=== PATIENT | male | born 1945 | race Caucasian/White ===

== ENCOUNTER 2018-06-29 05:25 | Day surgery (SDC) | payer OTHER, MEDICARE ==
--- NOTE | 2018-06-25 12:39 | RAD ---
EXAM DESCRIPTION: Chest,2 Views CLINICAL HISTORY: pre op COMPARISON: Previous study April 16, 2013 TECHNIQUE: PA/lateral FINDINGS: There is no acute appearing cardiac or pulmonary abnormality. Heart size is normal with normal pulmonary vascularity. No pleural effusion or pneumothorax. Lungs are clear with no consolidating infiltrate. Lateral view shows intact sternum and old wedging in the lower T-spine. IMPRESSION: No acute process is identified in the chest. Electronically signed by: Heriberto Yap MD 06/25/2018 12:38 PM [facility]
[2018-06-29] MEDS ORDERED: SODIUM CHL 0.9% 100ML MINI-BAG 100 ML IVPB ONE (06:49)
[2018-06-29] MEDS ORDERED: ceFAZolin SODIUM 1 GM VIAL ONE (06:49)
[2018-06-29] MEDS ORDERED: PROPOFOL 200 MG/20 ML VIAL IV ONE (07:00)
[2018-06-29] MEDS ORDERED: MIDAZOLAM INJ 2 MG/2 ML VIAL ONE (07:10)
[2018-06-29] MEDS ORDERED: fentaNYL CITRATE INJ 50 MCG/ML AMP ONE (07:10)
[2018-06-29] MEDS: LACTATED RINGERS 1,000 ML ONE ×2 (10:05→12:24)
[2018-06-29] MEDS ORDERED: SODIUM PHOS/BIPHOS ENEMA ADULT 133 ML BTTL PR ONE ×2 (10:21→10:30)
[2018-06-29] MEDS ORDERED: BUPIVACAINE 0.25% W/EPI 50 ML VIAL INJ ONE (11:26)
--- NOTE | 2018-06-29 13:37 | OP ---
DATE OF PROCEDURE: 06/29/18 PREOPERATIVE DIAGNOSIS: 1. Blood per rectum. 2. Hemorrhoids. POSTOPERATIVE DIAGNOSIS: 1. Blood per rectum. 2. Hemorrhoids. PROCEDURE: 1. Proctoscopy. 2. Excision of hemorrhoidal column times 2. SURGEON: Dwight Vickers MD. FELTMAKER AND WEIGHER: None. ANESTHESIA: Local infiltration of 0.25% Marcaine with epinephrine and general laryngeal mask anesthesia. INDICATION: The patient is a 73-year-old male who complains of bleeding and a prolapsed hemorrhoid with bowel movements. It has worsened recently. He was brought to the Surgical Suite today for proctoscopy and excision of hemorrhoids. FINDINGS: There were columns at 10 o'clock and 2 o'clock. Proctoscopy to 15 cm revealed no other lesions. PROCEDURE: After adequate general endotracheal anesthesia was obtained and the patient was placed in the dorsolithotomy position, he was prepped and draped in the usual sterile manner. Surgical time-out was taken. At this point, lubricant was used and the proctoscope was introduced to 15 cm and removed without revealing lesions. The examination of the perineum area, however, revealed two columns of hemorrhoids that collapsed, one at 10 o'clock and one at 4 o'clock, which was larger. At this point, the rectum was dilated to 2 fingers gently, then an operative anoscope was introduced, oriented to isolate the 4 o'clock lesion. At this time, an [facility] clamp was clamped across the length of the hemorrhoid. Local infiltration of anesthesia was obtained and then the hemorrhoid was excised using scissors. A 3-0 Prolene suture was then placed passed the clamp and tied. The mucosa was then reapproximated after the clamp was removed. There was bleeding from the distal area and this was covered with a [id number] suture of 3-0 Chromic. When hemostasis appeared to be adequate, the anoscope was moved following the 10 o'clock lesion. It was then clamp, injected and excised in the same manner. The mucosa was reapproximated again with the 3-0 Chromic sutures. When this was done, there was a small amount of oozing, so a 4x4 was moistened with local anesthetic, inserted into the rectum and held for 5 minutes. At that point, hemostasis seemed to be adequate. Sterile dressing was applied and the patient was awakened and taken to the Recovery Room in stable condition. Estimated blood loss was 150 mL. All sponge, needle and instrument counts were correct. #[id number] [facility]
[2018-06-29 13:44] VITALS: TEMP 96.7; O2SAT 98
[2018-06-29 13:49] VITALS: BP 158/80
== END 2018-06-29 13:45 | disposition home or self-care (01) ==
LOC: AMB 05:25
PROVIDERS: ATTEND Surgery
DX: K92.1 Melena (principal); K64.8 Other hemorrhoids; I10 Essential (primary) hypertension; Z96.652 Presence of left artificial knee joint; Z79.82 Long term (current) use of aspirin; Z79.899 Other long term (current) drug therapy
CPT/HCPCS: 00902; 36415; 45300; 46250; 71046; 80053; 81001; 85025; 93005; J0690; J2250; J3010; J3490; J7050; J7120

== ENCOUNTER → 2019-01-16 | Outpatient (CLI) | payer OTHER, MEDICARE ==
--- NOTE | 2019-01-16 13:39 | MRI ---
Study: MRI of the Left Foot. Indication: LEFT FOOT PAIN Technique: Multiplanar, multi sequence MRI of the left foot was obtained without intravenous contrast. Comparison: None. Findings: No acute fracture. Lisfranc ligament intact. Scattered mild osteoarthritis throughout the midfoot. Moderate osteoarthritis first MTP joint. Cellulitis throughout the forefoot and most pronounced at the second and third digits. A tiny subcutaneous fluid collection noted along the lateral margin of the base of the second digit anteriorly and measures up to 6.5 mm craniocaudal by 4 mm transverse by 11 mm AP concerning for a tiny abscess. No features of osteomyelitis. Impression: Cellulitis of the forefoot and most pronounced at the second and third digits with a tiny subcutaneous abscess suspected of the lateral margin of the base of the second digit. No features of osteomyelitis identified. Electronically signed by: Albert Tyler MD 01/16/2019 1:37 PM CDT
== END ==
LOC: MRI 09:30
PROVIDERS: ATTEND Family Medicine
DX: L03.116 Cellulitis of left lower limb (principal)

== ENCOUNTER 2020-08-16 11:50 | Inpatient (IN) | payer OTHER, MEDICARE ==
[2020-08-16] MEDS ORDERED: SODIUM CHLORIDE 0.9% (FLUSH) 10 ML SYG IV PRN ×2 (12:09→15:04)
[2020-08-16] MEDS ORDERED: DEXAMETHASONE INJ 10 MG/ML VIAL IV ONE (12:12)
--- NOTE | 2020-08-16 12:18 | ED.PDOC ---
History of Present Illness - General Chief Complaint: Respiratory Problem Stated Complaint: shortness of breath,cough, COVID+ Time Seen by Provider: 08/16/20 12:06 Source: patient, RN notes reviewed, Vital Signs reviewed, family Exam Limitations: no limitations - History of Present Illness Initial Comments: 75 yo male with PMH HTN and COVID+ presents with worsening SOB. States he began having cough and congestion on 08/06 and tested positive for COVID on 08/09 and treated with a Z pack. States he has had body aches, fatigue, decreased appetite and occasional fever. His breathing has been more difficult the past 2 days so came to ED for evaluation. Denies CP or CANTRELL. Reports cough productive of white mucous. Allergies/Adverse Reactions: Allergies NO KNOWN ALLERGY Allergy (Verified 06/30/15 09:21) Home Medications: Ambulatory Orders Amlodipine Besylate 08/16/20 Review of Systems - Review of Systems Constitutional: States: fever, weakness - generalized. Denies: chills EENTM: States: nose congestion. Denies: blurred vision, throat pain Respiratory: States: cough, short of breath Cardiology: Denies: chest pain, palpitations, syncope Gastrointestinal/Abdominal: Denies: abdominal pain, nausea, vomiting Genitourinary: Denies: dysuria, frequency Musculoskeletal: States: muscle pain Skin: Denies: rash Neurological: Denies: headache, numbness All other Systems: Reviewed and Negative Past Medical History (General) - Patient Medical History Hx Stroke: No Hx Cardiac Disorders: No Hx Congestive Heart Failure: No Hx Hypertension: Yes Hx Diabetes: No Hx MRSA: No - Vaccination History Hx Influenza Vaccination: No Hx Pneumococcal Vaccination: No - Social History Hx Tobacco Use: No Hx Alcohol Use: - drinks, mostly weekends Family Medical History - Family History Mother Family History: Unknown Physical Exam - Physical Exam General Appearance: Alert, Comfortable, No apparent distress Ears, Nose, Throat: normal pharynx Neck: non-tender, full range of motion, supple Respiratory: chest non-tender, normal breath sounds, no respiratory distress, no accessory muscle use Cardiovascular/Chest: regular rate, rhythm, no edema, no murmur Gastrointestinal/Abdominal: non tender, soft, no pulsatile mass Back Exam: no CVA tenderness, no vertebral tenderness Extremity: normal range of motion, non-tender, normal inspection Neurologic: no motor/sensory deficits, alert, normal mood/affect, oriented x 3 Skin Exam: normal color, warm/dry Progress - Progress Progress: 08/16/20 12:48 Lactic 2.8. Will give small bolus IVF and repeat lactic. Pt afebrile. Resting comfortably in no distress on 4L NC supplemental oxygen. 08/16/20 13:23 Pt has known COVID infection with worsening SOB past few days. He is hypoxic on RA and sats 93-94% on 4L NC. I have d/w hospitalist, Rigoberto Hardy, and will admit for covid pneumonia. - Results/Orders Results/Orders: EKG- NSR, rate 61, nml intervals, no ST abnormality CHEST Xray Impression: 1. Basilar atelectasis and shallow inspiration. 08/16/20 12:09 Telemetry .ONCE Sodium Chloride 0.9% (Flush) [Saline Flush Syringe] 10 ml IV PRN PRN EKG Stat Pulse Ox Stat 08/16/20 12:30 B-TYPE NATRIURETIC PEPTIDE/BNP Stat C-REACTIVE PROTEIN Stat LD-L/LDH Stat 08/16/20 12:35 BLOOD CULTURE Stat 08/16/20 12:48 Sodium Chloride 0.9% 1000ML [Ns 1000 ml] 1,000 ml IVS ONCE 08/16/20 13:21 Azithromycin IV [Zithromax IV] 500 mg Sodium Chloride 0.9% 250Ml [NS 250ml] 250 ml IVPB ONCE Remdesivir 200 mg Sodium Chloride 0.9% 250Ml [NS 250ml] 250 ml IVPB ONCE cefTRIAXone SODIUM [Rocephin] 1 gm Sodium Chl 0.9% 50Ml Min-Bag+ [NS 50ml MINI-BAG+] 50 ml IVPB ONCE 08/16/20 14:15 LACTIC ACID Q2H Laboratory Results - last 24 hr 08/16/20 08/16/20 08/16/20 12:30 12:30 12:31 WBC RBC Hgb Hct MCV MCH MCHC RDW Plt Count MPV Absolute Neuts (auto) Absolute Lymphs (auto) Absolute Monos (auto) Absolute Eos (auto) Absolute Basos (auto) Neutrophils % Lymphocytes % Monocytes % Eosinophils % Basophils % PT INR PTT (SP) Fibrinogen 546 H D-Dimer, Quantitative Sodium 138 Potassium 4.1 Chloride 101 Carbon Dioxide 26 Anion Gap 15.1 BUN 22 H Creatinine 0.84 BUN/Creatinine Ratio 26.2 H Random Glucose 95 Serum Osmolality 278.8 Lactic Acid Calcium 9.2 Total Bilirubin 1.8 H AST 63 H ALT 56 Alkaline Phosphatase 86 Creatine Kinase 37 L CK-MB (CK-2) 0.9 CK-MB (CK-2) % Not Reportable Troponin I < 0.02 B-Natriuretic Peptide < 15.0 Serum Total Protein 7.3 Albumin 3.4 Globulin 3.9 H Albumin/Globulin Ratio 0.9 L 08/16/20 08/16/20 08/16/20 12:31 12:31 12:31 WBC 7.3 RBC 5.95 Hgb 18.1 H Hct 54.0 H MCV 90.7 MCH 30.5 MCHC 33.6 RDW 15.0 H Plt Count 166 MPV 9.1 Absolute Neuts (auto) 5.40 Absolute Lymphs (auto) 0.90 L Absolute Monos (auto) 1.00 H Absolute Eos (auto) 0.00 Absolute Basos (auto) 0.00 Neutrophils % 74.0 Lymphocytes % 11.6 L Monocytes % 14.2 H Eosinophils % 0.1 L Basophils % 0.1 PT 12.2 H INR 1.23 H PTT (SP) 28.5 Fibrinogen D-Dimer, Quantitative 203.0 Sodium Potassium Chloride Carbon Dioxide Anion Gap BUN Creatinine BUN/Creatinine Ratio Random Glucose Serum Osmolality Lactic Acid 2.8 H* Calcium Total Bilirubin AST ALT Alkaline Phosphatase Creatine Kinase CK-MB (CK-2) CK-MB (CK-2) % Troponin I B-Natriuretic Peptide Serum Total Protein Albumin Globulin Albumin/Globulin Ratio Departure - Departure Clinical Impression: Pneumonia due to COVID-19 virus, Hypoxia, Essential hypertension Time of Disposition: 13:22 Disposition: Admit Patient Condition: Fair Departure Forms: ED Discharge - Pt. Copy, Patient Portal Self Enrollment Referrals: CHRIST ZHOU [Primary Care Provider] - 1-2 Weeks Home Medications: Ambulatory Orders Amlodipine Besylate 08/16/20 Decision To Admit - Decistion To Admit Decision to Admit Date: 08/16/20 Decision to Admit Time: 13:22
[2020-08-16] MEDS ORDERED: SODIUM CHLORIDE 0.9% 1000ML 1,000 ML IVS ONE (12:48)
--- NOTE | 2020-08-16 12:52 | RAD ---
: 1945. Technique: Portable AP chest x-ray. Comparison: June 25, 2018. Clinical history: SOB. Heart size: Normal. Lungs: Shallow inspiration. Linear densities at the lung bases consistent with scarring or subsegmental atelectasis. No airspace consolidation. Pleura: No pleural effusion. No pneumothorax. Mediastinum and jose: Unremarkable. Skeletal: Unremarkable. Support tubings: None. Impression: 1. Basilar atelectasis and shallow inspiration. Electronically signed by: Poncho Damon MD 08/16/2020 12:51 PM [facility]
[2020-08-16] MEDS ORDERED: REMDESIVIR 200 MG in SODIUM CHLORIDE 0.9% 250ML 250 ML IVPB ONE (13:21)
[2020-08-16] MEDS ORDERED: AZITHROMYCIN IV 500 MG in SODIUM CHLORIDE 0.9% 250ML 250 ML IVPB ONE (13:21)
[2020-08-16] MEDS ORDERED: cefTRIAXone SODIUM 1 GM in SODIUM CHL 0.9% 50ML MIN-BAG+ 50 ML IVPB ONE (13:21)
--- NOTE | 2020-08-16 13:41 | HP ---
SUPERVISING PHYSICIAN: Jeffrey Rosado MD CHIEF COMPLAINT: Cough, shortness of breath, Covid positive. HISTORY OF PRESENT ILLNESS: Mr. Toney is a 75 year-old male patient who presented to the Emergency Room today with a history of hypertension and recently being tested positive for Covid. He presents with increasing shortness of breath. He endorses that his symptoms initially started with a cough and congestion on 08/06/20. He actually tested positive on 08/09/20 and was started on a Z-Pac at that time. He also endorses that he has had body aches, fatigue, decreased appetite and occasional fever and increasing difficulty with breathing over the last 2 days. He denied actual chest pain. His chest x-ray shows bilateral atelectasis. His actual labs showed he had a white count of 7,300 without a left shift but low lymphocytic count. His D-dimer was normal but he had a lactic acid of 2.8. Creatinine was 0.84. C-reactive protein is a little low at 6.1. Vital signs in the Emergency Room showing saturation 88% on room air. He does not normally wear oxygen. Respirations of 24, some mild distress. After breathing treatment and placing him on oxygen at nasal cannula, he was showing 94% saturations. Given his recent testing positive for Covid and increasing shortness of breath and dyspnea, hypoxia, he is going to be admitted now for treatment of Covid pneumonitis. He was admitted in stable condition. PAST MEDICAL HISTORY: 1. Hypertension. PAST SURGICAL HISTORY: 1. Left inguinal hernia. 2. Eye surgery. 3. Left total knee replacement. CURRENT MEDICATIONS: Awaiting updated list and verification of his medications in the electronic medical record. ALLERGIES: No known drug allergies. FAMILY HISTORY: Positive for CVA, dementia. SOCIAL HISTORY: The patient currently works at [employer] in [place], [place]. He drinks an occasional beer but has no history of smoking. He is and lives by himself. REVIEW OF SYSTEMS: CONSTITUTIONAL: Positive for general malaise, weakness, fevers. Denies any actual chills or unintentional weight loss. HEENT: Positive for nasal congestion, denies ear ache, headaches. vision changes, sore throat. CHEST: Positive for cough and increasing shortness of breath. HEART: Denies chest pain, palpitations, or syncopal episodes. ABDOMEN: Negative for nausea, vomiting, diarrhea or constipation or abdominal pains. GENITOURINARY: Denies dysuria, hematuria or polyuria. MUSCULOSKELETAL: General arthralgias, no joint swelling. SKIN: Denies lesions, rashes, moles or unexplained changes. NEUROLOGIC: Denies ataxia, seizures, paraesthesias, headaches or other focal neurological deficits. HEMATOLOGICAL: Denies unexplained bleeding, easy bruising or transfusion reactions. PHYSICAL EXAMINATION: VITAL SIGNS: Temperature 98.3, pulse 74, blood pressure 150/84, respirations 24 to 26, oxygen saturation 88% on room air. After breathing treatment and placing on oxygen 4 liter nasal cannula, he was showing 94% saturations. GENERAL: The patient looks to be in no acute distress. He is resting comfortably. He is alert. HEENT: Tympanic membranes are clear bilaterally. Oropharynx is pink, moist, no lesions. NECK: Supple, non-tender, full range of motion. No jugular venous distention. CHEST: Fairly clear, just diminished toward the bases, no obvious rhonchi, rales, or wheezes. CARDIOVASCULAR: Regular rate and rhythm without appreciable murmurs, rubs, or gallops. ABDOMEN: Soft, non-tender, positive bowel sounds BACK: No CVA tenderness, no vertebral tenderness. EXTREMITIES: Without cyanosis, clubbing, or edema. NEUROLOGIC: He is alert and oriented x 3. Cranial nerves II through XII are grossly intact. SKIN: Warm, pink and dry. RECTAL: Exam deferred. LABORATORY: White count 7,300, hemoglobin 18.1, hematocrit 54.0. Platelet count 166,000. Differential does show to be without a left shift but a low lymphocytic count. Coagulation studies showed normal PTT. D-dimer normal at 203. Fibrinogen slightly elevated at 546. Chemistries show normal electrolytes, creatinine 0.4. Initial lactic acid 2.8. After a liter of fluid and repeat 2 hours, was 1.8. Bilirubin slightly elevated at 1.8. AST up to 63, ALT normal, alkaline phosphatase normal. LDH elevated at 292. C-reactive protein 6.1. Troponin less than 0.02. MICROBIOLOGY: Blood cultures are pending. RADIOLOGY: 12-lead EKG shows a normal sinus rhythm at 61 [id number] [address] or T- wave changes to indicate acute ischemia. Chest x-ray showed bibasilar atelectasis and shallow inspiration. ASSESSMENT: 1. Covid pneumonitis with associated hypoxia. 2. Sepsis secondary to #1 with initial elevated lactic acid. 3. Hypertension. PLAN: Mr. Toney is going to be admitted for treatment of Covid pneumonitis. He will be treated with Rocephin, azithromycin, Remdesivir, Decadron. He will be started on Protonix, Align and Mucinex and Lovenox for DVT prophylaxis. He will have oxygen and keep his oxygen saturation at 94% or greater. We will work to titrate him down to room air as soon as possible. He will have scheduled incentive spirometry with aggressive pulmonary hygiene, albuterol for breathing treatments scheduled and as needed. I would anticipate his length of stay to be at least 2 to 3 days. We will follow his labs and x-rays as per protocol. Until we can transition patient to outpatient management, we will continue to monitor and treat as needed #[id number] [facility]
[2020-08-16] MEDS ORDERED: ALBUTEROL INHALER 64 PUFF/8GM INH PRN (15:01)
[2020-08-16] MEDS ORDERED: ONDANSETRON INJ 4 MG/2 ML VIAL IV PRN (15:04)
[2020-08-16] MEDS: IV SET AND CAP CHANGE INJ INJ SCH (16:14)
[2020-08-16] MEDS: ALBUTEROL INHALER 64 PUFF/8GM INH SCH ×2 (17:30→20:46)
[2020-08-16] MEDS: guaiFENesin ER TAB 600 MG TAB PO SCH (20:35)
[2020-08-16] MEDS: ENOXAPARIN SODIUM 40 MG/0.4 ML SYG SUBCU SCH (20:35)
--- NOTE | 2020-08-17 06:25 | RAD ---
PROCEDURE:XR CHEST 1 VIEW HISTORY:COVID COMPARISON: August 16, 2020 FINDINGS: The heart appears unremarkable. The patient again has taken a poor inspiratory effort. There is some crowding the pulmonary vascularity. There is no effusion or pneumothorax. There are atelectatic changes seen at the left lung base. There are no acute bony or soft tissue abnormalities. IMPRESSION: Stable chest x-ray. Electronically signed by: Chicho Claire MD 08/17/2020 6:23 AM [employer]
[2020-08-17] MEDS ORDERED: PANTOPRAZOLE SODIUM IV 40 MG VIAL IV SCH (06:30)
[2020-08-17] MEDS ORDERED: AZITHROMYCIN IV 500 MG VIAL IVPB ONE (07:25)
[2020-08-17] MEDS ORDERED: SODIUM CHLORIDE 0.9% 250ML 250 ML ONE (07:25)
[2020-08-17] MEDS ORDERED: cefTRIAXone SODIUM 1 GM VIAL ONE (07:26)
[2020-08-17] MEDS ORDERED: SODIUM CHL 0.9% 50ML MIN-BAG+ 50 ML IVPB ONE (07:26)
[2020-08-17] MEDS: ALBUTEROL INHALER 64 PUFF/8GM INH SCH ×4 (08:40→20:50)
[2020-08-17] MEDS: BIFIDOBACTERIUM INFANTIS 4 MG CAP PO SCH (08:52)
[2020-08-17] MEDS: guaiFENesin ER TAB 600 MG TAB PO SCH ×2 (08:52→20:08)
[2020-08-17] MEDS: AZITHROMYCIN IV 500 MG in SODIUM CHLORIDE 0.9% 250ML 250 ML IVPB SCH (09:06)
[2020-08-17] MEDS: DEXAMETHASONE INJ 10 MG/ML VIAL IV SCH (09:06)
[2020-08-17] MEDS: cefTRIAXone SODIUM 1 GM in SODIUM CHL 0.9% 50ML MIN-BAG+ 50 ML IVPB SCH ×2 (09:06→19:26)
--- NOTE | 2020-08-17 09:41 | PN ---
SUPERVISING PHYSICIAN: Santosh Garber MD DATE: 08/17/20 SUBJECTIVE: The patient is not feeling any shortness of breath. He does have a little bit of increased shortness of breath as he walks around the room. He does have a productive cough with white sputum. OBJECTIVE: VITAL SIGNS: Blood pressure 116/67, heart rate 54, respiratory rate 18, temperature 97.2, oxygen saturation 95% on 5 liters via nasal cannula. GENERAL: Mr. Toney is a 75-year-old male patient who is in no active distress currently. NEUROLOGIC: The patient is alert. LUNGS: Diminished with some bibasilar rales. CARDIOVASCULAR: Regular rate and rhythm. Normal S1, S2. ABDOMEN: Soft. Positive bowel sounds. EXTREMITIES: Lower extremities with no significant edema. LABORATORY: White count 2.8, hemoglobin 15.5, platelet count 125. D-dimer less than 131. Chemistry with mildly elevated BUN at 20. Glucose 162. RADIOLOGY: Chest x-ray shows no significant change from yesterday. ASSESSMENT: 1. Acute hypoxic respiratory failure secondary to COVID pneumonitis. 2. COVID pneumonitis. 3. Sepsis secondary to #1 with improved lactic acid. 4. Hypertension. PLAN: We will continue the remdesivir, empiric antibiotics as well as dexamethasone. Scheduled bronchodilator therapy as well as bronchial hygiene has been ordered as well. We will continue to watch labs and x-rays as needed. #[id number] [facility]
[2020-08-17] MEDS: REMDESIVIR 100 MG in SODIUM CHLORIDE 0.9% 250ML 250 ML IVPB SCH (11:27)
[2020-08-17] MEDS: ENOXAPARIN SODIUM 40 MG/0.4 ML SYG SUBCU SCH (20:08)
[2020-08-18] MEDS ORDERED: PANTOPRAZOLE SODIUM TAB 40 MG PO ONE (03:20)
[2020-08-18] MEDS: PANTOPRAZOLE SODIUM TAB 40 MG PO SCH (05:40)
--- NOTE | 2020-08-18 07:33 | RAD ---
EXAM DESCRIPTION: Chest,1 View CLINICAL HISTORY: 75 years Male, COVID COMPARISON: August 17, 2020 TECHNIQUE: AP portable chest. FINDINGS: Extremely small lung volumes with worsening peripheral hazy infiltrates with relative sparing of the infrahilar and perihilar region on the right noted. Definite deterioration from portable previous day's study noted. No associated pleural effusions. Heart size normal allowing for poor inspiration. Tortuous aorta. An area of more dense consolidation at the lateral left lung base is cleared since previous study. IMPRESSION: Overall deterioration of the chest with hazy peripheral infiltrates typical of a Covid pneumonitis with relative sparing of the central right chest. An area of more dense consolidation at the lateral left lung base has cleared since previous day's study. Electronically signed by: Gallito Black MD 08/18/2020 7:32 AM [facility]
[2020-08-18] MEDS: ALBUTEROL INHALER 64 PUFF/8GM INH SCH ×4 (08:15→20:48)
[2020-08-18] MEDS: DEXAMETHASONE INJ 10 MG/ML VIAL IV SCH ×2 (09:03→20:54)
[2020-08-18] MEDS: cefTRIAXone SODIUM 1 GM in SODIUM CHL 0.9% 50ML MIN-BAG+ 50 ML IVPB SCH ×2 (09:03→20:53)
[2020-08-18] MEDS: BIFIDOBACTERIUM INFANTIS 4 MG CAP PO SCH (09:04)
[2020-08-18] MEDS: AZITHROMYCIN IV 500 MG in SODIUM CHLORIDE 0.9% 250ML 250 ML IVPB SCH (09:04)
[2020-08-18] MEDS: guaiFENesin ER TAB 600 MG TAB PO SCH ×2 (09:04→20:55)
[2020-08-18] MEDS: ACETAMINOPHEN 325 MG TAB PO PRN (09:30)
--- NOTE | 2020-08-18 10:58 | PN ---
SUPERVISING PHYSICIAN: Santosh Garber MD DATE: 08/18/20 SUBJECTIVE: The patient states he feels okay. He gets a little bit short of breath with movement, but overall slept pretty decently las night. OBJECTIVE: VITAL SIGNS: Blood pressure 133/71, heart rate 60, respiratory rate 18, temperature 97.6, oxygen saturation 91% on 7 liters via nasal cannula. GENERAL: Mr. Toney is a 75-year-old male patient who is in no active distress currently. NEUROLOGIC: The patient is alert and oriented. LUNGS: Diminished. CARDIOVASCULAR: Regular rate and rhythm. Normal S1, S2. ABDOMEN: Soft. Positive bowel sounds. EXTREMITIES: Lower extremities with no edema. LABORATORY: White count 7.7, hemoglobin 15.0, platelet count 133. D-dimer less than 131. Chemistry with CRP down to 1.8. RADIOLOGY: Chest x-ray with mild diffuse increase in opacities. ASSESSMENT: 1. Acute hypoxemic respiratory failure. 2. COVID pneumonitis. 3. Hypertension. PLAN: We will continue the remdesivir, empiric antibiotics as well as dexamethasone. I am actually going to increase the dexamethasone to b.i.d. due to increased O2 requirements. We will continue bronchodilator therapy as well as bronchial hygiene. We will continue to monitor labs and x-rays as needed. #[id number] [facility]
[2020-08-18] MEDS: REMDESIVIR 100 MG in SODIUM CHLORIDE 0.9% 250ML 250 ML IVPB SCH (11:17)
[2020-08-18] MEDS: ENOXAPARIN SODIUM 40 MG/0.4 ML SYG SUBCU SCH (20:54)
[2020-08-18] MEDS: PROMETHAZINE W/CODEINE SYR 6.25 MG/10 MG/5 ML UD PO PRN (20:55)
[2020-08-19] MEDS: PANTOPRAZOLE SODIUM TAB 40 MG PO SCH (05:37)
--- NOTE | 2020-08-19 07:13 | RAD ---
PROCEDURE:XR CHEST 1 VIEW HISTORY:COVID COMPARISON: August 18, 2020 FINDINGS: The heart is stable in appearance.. There are stable infiltrates. There are no new infiltrates. There is no evidence for effusion or pneumothorax. There are no acute bony or soft tissue abnormalities. IMPRESSION: Stable chest x-ray. Electronically signed by: Chicho Claire MD 08/19/2020 7:12 AM [employer]
[2020-08-19] MEDS: ALBUTEROL INHALER 64 PUFF/8GM INH SCH ×4 (08:00→19:10)
[2020-08-19] MEDS: cefTRIAXone SODIUM 1 GM in SODIUM CHL 0.9% 50ML MIN-BAG+ 50 ML IVPB SCH ×2 (09:21→19:46)
[2020-08-19] MEDS: guaiFENesin ER TAB 600 MG TAB PO SCH ×2 (09:21→20:24)
[2020-08-19] MEDS: AZITHROMYCIN IV 500 MG in SODIUM CHLORIDE 0.9% 250ML 250 ML IVPB SCH (09:21)
[2020-08-19] MEDS: BIFIDOBACTERIUM INFANTIS 4 MG CAP PO SCH (09:21)
[2020-08-19] MEDS: DEXAMETHASONE INJ 10 MG/ML VIAL IV SCH ×2 (09:22→20:24)
[2020-08-19] MEDS: REMDESIVIR 100 MG in SODIUM CHLORIDE 0.9% 250ML 250 ML IVPB SCH (12:08)
[2020-08-19] MEDS: IV SET AND CAP CHANGE INJ INJ SCH (14:56)
--- NOTE | 2020-08-19 15:42 | PN ---
SUPERVISING PHYSICIAN: Santosh Garber MD DATE: 08/19/20 SUBJECTIVE: The patient is resting on his left side. He does not appear to be in any distress. He is just mildly tachypneic. Otherwise, he is doing okay. He has not had any chest pain. He says his shortness of breath is still there, but not as bad. OBJECTIVE: VITAL SIGNS: Temperature 98.6, pulse 52, blood pressure 143/83, respirations 16, saturation anywhere from 89% to 94% on high flow nasal cannula anywhere from 5 to 8 liters. GENERAL: The patient is resting comfortably on his left side. He does not appear to be in any distress. He is alert. CHEST: Right lung is fairly clear, just diminished toward the base. Left lung has fairly prominent rhonchi heard, more so in upper lung field, more prominent on lateral aspect. No obvious wheezing is noted. No rales. HEART: Regular rate and rhythm. ABDOMEN: Soft, nontender. Positive bowel sounds. EXTREMITIES: No edema. NEUROLOGIC: Alert and oriented times three. LABORATORY: CBC fairly stable with white count 6,500, hemoglobin 15.1, hematocrit 45.0, platelet count 135,000. Differential continues to show a left shift. Coagulation studies show D-dimer normalized now to less than 131. Chemistries show creatinine 0.5. His last C-reactive protein was 1.8. RADIOLOGY: Repeat chest x-ray this morning per radiologic interpretation of single view chest shows x-rays to be stable with infiltrates noted, no new infiltrates, no effusion or pneumothorax. ASSESSMENT: 1. Acute hypoxemic respiratory failure. 2. COVID pneumonitis. 3. Hypertension. PLAN: We will continue with current plan of care with antibiotics, remdesivir and Decadron. We will continue to titrate his oxygen as he tolerates to lower flow. He does remain on Decadron at b.i.d. which seems to be helping. I have encouraged him to self prone if possible and to lay on his side to help with oxygenation. Again, hopefully we will be able to get his oxygen needs down to at least 4 liters stably. Until that point, we will continue to monitor and treat as needed. [facility][id number] [facility]
[2020-08-19] MEDS: ENOXAPARIN SODIUM 40 MG/0.4 ML SYG SUBCU SCH (20:24)
[2020-08-20] MEDS: PANTOPRAZOLE SODIUM TAB 40 MG PO SCH (05:48)
[2020-08-20] MEDS: ALBUTEROL INHALER 64 PUFF/8GM INH SCH ×4 (08:20→19:45)
[2020-08-20] MEDS: cefTRIAXone SODIUM 1 GM in SODIUM CHL 0.9% 50ML MIN-BAG+ 50 ML IVPB SCH ×2 (09:47→20:04)
[2020-08-20] MEDS: AZITHROMYCIN IV 500 MG in SODIUM CHLORIDE 0.9% 250ML 250 ML IVPB SCH (09:47)
[2020-08-20] MEDS: guaiFENesin ER TAB 600 MG TAB PO SCH ×2 (09:48→20:32)
[2020-08-20] MEDS: BIFIDOBACTERIUM INFANTIS 4 MG CAP PO SCH (09:48)
[2020-08-20] MEDS: DEXAMETHASONE INJ 10 MG/ML VIAL IV SCH ×2 (09:48→20:32)
[2020-08-20] MEDS: REMDESIVIR 100 MG in SODIUM CHLORIDE 0.9% 250ML 250 ML IVPB SCH (12:16)
[2020-08-20] MEDS: ENOXAPARIN SODIUM 40 MG/0.4 ML SYG SUBCU SCH (20:31)
[2020-08-21] MEDS: PANTOPRAZOLE SODIUM TAB 40 MG PO SCH (05:56)
--- NOTE | 2020-08-21 06:05 | RAD ---
EXAM: XR CHEST 1 VIEW HISTORY: 75 years, Male, COVID PNA TECHNIQUE: Chest,1 View COMPARISON: August 19, 2020 FINDINGS: Again seen are bilateral infiltrates with interspersed airspace opacities greatest in the left perihilar region and left lateral mid lung. Infectious process suspected. Stable mediastinal cardiac silhouette. No effusions. IMPRESSION: Bilateral infiltrates and airspace opacities, more prominent in the left lateral mid lung and left perihilar region. Electronically signed by: Chantal Griggs MD 08/21/2020 6:03 AM [facility]
--- NOTE | 2020-08-21 08:19 | PN ---
SUPERVISING PHYSICIAN: Santosh Garber MD DATE: 08/20/20 SUBJECTIVE: The patient has been on the Airvo high flow nasal cannula system and seems to be doing okay. He is still having some obvious shortness of breath, but is in no distress. No chest pains reported. He has had several bowel movements, no abdominal pains. He does remain afebrile. OBJECTIVE: VITAL SIGNS: Temperature 97.8, pulse 62, blood pressure 128/73, respirations 18 to 20, saturation 95% on high flow nasal cannula. GENERAL: The patient is laying in bed currently utilizing the Airvo high flow nasal cannula system. He is in no distress, he is alert. CHEST: Left side chest continues to have a significant amount of rhonchi heard, more prominent in upper lobe and to the lateral aspect. No wheezing or rales noted. Right side sounds fairly clear, just diminished toward the base. HEART: Regular rate and rhythm. ABDOMEN: Soft, nontender. Positive bowel sounds. EXTREMITIES: No edema. NEUROLOGIC: Alert and oriented times three. LABORATORY: No additional lab studies today as his labs have been fairly stable. RADIOLOGY: No repeat chest x-ray today, that has been stable as well. ASSESSMENT: 1. Acute hypoxemic respiratory failure. 2. COVID pneumonitis. 3. Hypertension. PLAN: We will continue with Rocephin, dexamethasone, Lovenox. He has finished a full course of azithromycin. He remains on Protonix and Align. We will continue to do aggressive pulmonary hygiene with albuterol treatments as needed and scheduled. We will continue to work to titrate his oxygen needs down as he tolerates. Until that point, we will continue to monitor and treat as needed until he can transition to outpatient management. [id number]
[2020-08-21] MEDS: DEXAMETHASONE INJ 10 MG/ML VIAL IV SCH ×2 (08:38→20:46)
[2020-08-21] MEDS: BIFIDOBACTERIUM INFANTIS 4 MG CAP PO SCH (08:38)
[2020-08-21] MEDS: cefTRIAXone SODIUM 1 GM in SODIUM CHL 0.9% 50ML MIN-BAG+ 50 ML IVPB SCH (08:38)
[2020-08-21] MEDS: guaiFENesin ER TAB 600 MG TAB PO SCH ×2 (08:38→20:46)
[2020-08-21] MEDS: ALBUTEROL INHALER 64 PUFF/8GM INH SCH ×4 (09:00→20:37)
[2020-08-21] MEDS: levoFLOXacin 750MG IV 750 MG in PREMIX BAG 1 BAG IVPB SCH (10:08)
--- NOTE | 2020-08-21 13:33 | PN ---
SUPERVISING PHYSICIAN: Santosh Garber MD DATE: 08/21/20 SUBJECTIVE: The patient remains on high flow nasal cannula via the Airvo system. he has not made any significant strides to decrease his oxygen needs overnight, but he is remaining stable. He has had no chest pain, no nausea or vomiting. We did discuss his code status and he does wish to continue with a full code and intubation if needed. He remains afebrile. OBJECTIVE: VITAL SIGNS: Temperature 97.6, pulse 61, blood pressure 135/78, respirations 18, saturation 90-91% on high flow nasal cannula via Airvo system. GENERAL: The patient is laying in bed currently utilizing the Airvo high flow nasal cannula system. He is in no distress, he is alert. CHEST: Left chest continues to have mild rhonchi heard, not as prominent as yesterday, but continues to be more prominent in upper lobe in the lateral aspect. I am not hearing any wheezing or rales. There seems to be much better air movement today compared to yesterday on the right and continues to sound fairly clear. HEART: Regular rate and rhythm. ABDOMEN: Soft, nontender. Positive bowel sounds. EXTREMITIES: No edema. NEUROLOGIC: Alert and oriented times three. LABORATORY: Chemistries show normal electrolytes. Creatinine 0.61, calcium 8.6. C-reactive protein is now normalized. RADIOLOGY: Repeat chest x-ray today per radiologic interpretation shows bilateral infiltrates and interstitial opacities, more prominent in the left lateral midlung and left perihilar region. ASSESSMENT: 1. Acute hypoxemic respiratory failure. 2. COVID pneumonitis. 3. Hypertension. PLAN: He has finished his antibiotics in the form of Rocephin and azithromycin. Given that he still having significant rhonchi and consolidation in the left upper lobe and has not made any significant progress in the last 24 hours, I am going to escalate his coverage with antibiotics with Levaquin. We will start him on Levaquin 750 mg with anticipation of 5 days. He remains on Protonix, Align, Lovenox and dexamethasone. He continues to have aggressive pulmonary hygiene with albuterol treatments as needed and remains on Airvo system. We will continue to work to titrate his oxygen needs to room as he tolerates, but it has been slow progress. Until the patient can transition to outpatient management, we will continue to monitor and treat as needed. [facility][id number]
[2020-08-21] MEDS: PROMETHAZINE W/CODEINE SYR 6.25 MG/10 MG/5 ML UD PO PRN (20:10)
[2020-08-21] MEDS: ENOXAPARIN SODIUM 40 MG/0.4 ML SYG SUBCU SCH (20:46)
[2020-08-22] MEDS: PANTOPRAZOLE SODIUM TAB 40 MG PO SCH (06:05)
[2020-08-22] MEDS: BIFIDOBACTERIUM INFANTIS 4 MG CAP PO SCH (08:23)
[2020-08-22] MEDS: guaiFENesin ER TAB 600 MG TAB PO SCH ×2 (08:23→20:38)
[2020-08-22] MEDS: ALBUTEROL INHALER 64 PUFF/8GM INH SCH ×4 (08:30→20:05)
[2020-08-22] MEDS: levoFLOXacin 750MG IV 750 MG in PREMIX BAG 1 BAG IVPB SCH (09:37)
--- NOTE | 2020-08-22 14:25 | PN ---
SUPERVISING PHYSICIAN: Santosh Garber MD DATE: 08/22/20 SUBJECTIVE: The patient seems to be doing fairly well. He has no major complaints. No chest pain, no nausea. Still having some shortness of breath, especially with ambulation. He seems to be doing okay on the high flow nasal cannula via the Airvo system. He is actually showing some decrease in need for FI02. Otherwise, he appears to be fairly stable. OBJECTIVE: VITAL SIGNS: Temperature 97.6, pulse 49, blood pressure 138/79, respirations 22, saturation 95% on high flow nasal cannula and FI02 with Airvo system. GENERAL: The patient is laying in bed currently utilizing the Airvo high flow nasal cannula system. He is in no distress, he is alert. CHEST: Left chest continues to have mild rhonchi heard, not as prominent as yesterday, but continues to be more prominent in upper lobe in the lateral aspect. I am not hearing any wheezing or rales. There seems to be much better air movement today compared to yesterday on the right and continues to sound fairly clear. HEART: Regular rate and rhythm. ABDOMEN: Soft, nontender. Positive bowel sounds. EXTREMITIES: No edema. NEUROLOGIC: Alert and oriented times three. LABORATORY: No additional laboratory studies today. His lab has been fairly stable. C-reactive protein is normalized as well as his D-dimer. MICROBIOLOGY: Blood cultures remain negative after 5 days. RADIOLOGY: No repeat chest x-ray today as his chest x-ray has been fairly stable. ASSESSMENT: 1. Acute hypoxemic respiratory failure. 2. COVID pneumonitis. 3. Hypertension. PLAN: We will continue current plan of care. He is now on antibiotic coverage with Levaquin. He has finished a full course of Decadron. We may go ahead and put him back on low-dose prednisone today to see if this will at least assist in decrease of his oxygen needs. He remains on Lovenox for DVT prophylaxis, Protonix. We will continue to titrate his oxygen down as possibly and hopefully get him down to at least lower flow nasal cannula over the next 24-48 ours. Until then, we will continue to monitor and treat as needed until we can transition him to outpatient management. #[id number] [facility]
[2020-08-22] MEDS: IV SET AND CAP CHANGE INJ INJ SCH (18:09)
[2020-08-22] MEDS: ENOXAPARIN SODIUM 40 MG/0.4 ML SYG SUBCU SCH (20:38)
[2020-08-22] MEDS: PROMETHAZINE W/CODEINE SYR 6.25 MG/10 MG/5 ML UD PO PRN (21:25)
[2020-08-23] MEDS: PANTOPRAZOLE SODIUM TAB 40 MG PO SCH (06:08)
[2020-08-23] MEDS: ALBUTEROL INHALER 64 PUFF/8GM INH SCH ×4 (08:40→19:30)
--- NOTE | 2020-08-23 09:00 | RAD ---
PROCEDURE:XR CHEST 1 VIEW HISTORY:COVID PNA COMPARISON: August 21, 2020 FINDINGS: The heart appears unremarkable. There are stable infiltrates. There are no new infiltrates. There is no evidence for effusion or pneumothorax. There are no acute bony or soft tissue abnormalities. IMPRESSION: Stable chest x-ray. Electronically signed by: Chicho Claire MD 08/23/2020 8:58 AM CREW LEADER/CONTROL ROOM OPERATOR
[2020-08-23] MEDS: levoFLOXacin 750MG IV 750 MG in PREMIX BAG 1 BAG IVPB SCH (09:37)
[2020-08-23] MEDS: BIFIDOBACTERIUM INFANTIS 4 MG CAP PO SCH (11:16)
[2020-08-23] MEDS: guaiFENesin ER TAB 600 MG TAB PO SCH ×2 (11:17→20:30)
[2020-08-23] MEDS: predniSONE 20 MG TAB PO SCH (11:17)
--- NOTE | 2020-08-23 14:41 | PN ---
SUPERVISING PHYSICIAN: Santosh Garber MD DATE: 08/23/20 SUBJECTIVE: The patient is sitting up in bed. He has his Airvo on. Earlier today, we tried the BiPAP and he was unable to tolerate it. We had a long discussion about the need for BiPAP and he did say he would attempt to use it if he could. OBJECTIVE: VITAL SIGNS: Temperature 97.6, heart rate 82, blood pressure 140/81, respiratory rate 22, O2 saturation 91% on high flow Airvo. RESPIRATORY: Diminished throughout. CARDIAC: Regular rate and rhythm. NEUROLOGIC: Awake, alert and oriented times three. LABORATORY: WBCs 13,200, hemoglobin 16.9, hematocrit 50. He has a left shift on differential. D-dimer less than 131, fibrinogen 420. Electrolytes are basically within normal limits. RADIOLOGY: Chest x-ray shows stable chest x-ray. All other labs and films have been reviewed via the EMR. ASSESSMENT: 1. Acute hypoxemic respiratory failure. 2. COVID pneumonitis. 3. Hypertension. PLAN: We will continue present supportive care. I have given him some Ativan to help him tolerate BiPAP as needed and we will continue to titrate his oxygen as indicated by his clinical presentation. I ordered lab for tomorrow. I will hold on a chest x-ray for now. Continue aggressive pulmonary hygiene. [facility][id number] [facility]
[2020-08-23] MEDS: ENOXAPARIN SODIUM 40 MG/0.4 ML SYG SUBCU SCH (20:30)
[2020-08-23] MEDS: PROMETHAZINE W/CODEINE SYR 6.25 MG/10 MG/5 ML UD PO PRN (20:30)
[2020-08-24] MEDS: PANTOPRAZOLE SODIUM TAB 40 MG PO SCH (06:18)
[2020-08-24] MEDS: ALBUTEROL INHALER 64 PUFF/8GM INH SCH ×2 (07:30→13:07)
[2020-08-24] MEDS: BIFIDOBACTERIUM INFANTIS 4 MG CAP PO SCH (08:53)
[2020-08-24] MEDS: levoFLOXacin 750MG IV 750 MG in PREMIX BAG 1 BAG IVPB SCH (08:53)
[2020-08-24] MEDS: guaiFENesin ER TAB 600 MG TAB PO SCH ×2 (08:53→20:08)
[2020-08-24] MEDS: predniSONE 20 MG TAB PO SCH (08:54)
[2020-08-24] MEDS ORDERED: ALBUTEROL SULFATE 2.5 MG/3 ML VIAL NEB PRN (14:49)
--- NOTE | 2020-08-24 15:38 | PN ---
SUPERVISING PHYSICIAN: Gallito Rankin MD DATE: 08/24/20 SUBJECTIVE: The patient is sitting up in bed. He has BiPAP on. Nursing said he is tolerating it better today. The patient denies chest pain, nausea and vomiting. He does admit he continues to be anxious. OBJECTIVE: VITAL SIGNS: Temperature 97.5, heart rate 74, blood pressure 130/74, respiratory rate 21, O2 saturation 91% on 50% BiPAP. RESPIRATORY: Diminished throughout. CARDIAC: Regular rate and rhythm. NEUROLOGIC: Awake, alert and oriented times three. LABORATORY: WBCs 13,700, hemoglobin 17.1, hematocrit 49.7 He has a left shift on differential. D-dimer 448. Electrolytes are basically within normal limits. Bilirubin 3.5, direct bilirubin 0.6, indirect bilirubin 2.9. C-reactive protein 6.1. All other labs and films have been reviewed via the EMR. ASSESSMENT: 1. Acute hypoxemic respiratory failure. 2. COVID pneumonitis. 3. Hypertension. 4. Hyperbilirubinemia. PLAN: We will continue present supportive care. We will continue COVID guidelines. We will continue with aggressive pulmonary hygiene. I have ordered lab for in the morning as well as CT scan. I changed his inhaler to breathing treatments for more aggressive pulmonary hygiene. #[id number] [facility]
[2020-08-24] MEDS: IPRATROPIUM/ALBUTEROL 3 ML VIAL NEB SCH ×2 (16:08→21:50)
[2020-08-24] MEDS: ENOXAPARIN SODIUM 40 MG/0.4 ML SYG SUBCU SCH (20:08)
[2020-08-24] MEDS: ACETAMINOPHEN 325 MG TAB PO PRN (23:40)
[2020-08-25] MEDS: PANTOPRAZOLE SODIUM TAB 40 MG PO SCH (05:45)
--- NOTE | 2020-08-25 07:35 | RAD ---
EXAM: XR Chest, 1 View CLINICAL HISTORY: covid TECHNIQUE: Frontal view of the chest. COMPARISON: 08/23/2020 FINDINGS: Lungs: Mild increased bilateral multifocal airspace consolidation and interstitial thickening. Generalized diminished lung volumes unchanged. Pleural space: No pneumothorax. No pleural effusion. Heart: Stable cardiac shadow. Mediastinum: Probable hiatal hernia. Bones/joints: No osseous destruction or sclerosis noted. IMPRESSION: Mild increased pneumonia. Electronically signed by: Mary Baker MD 08/25/2020 7:34 AM BANANA CARRIER
[2020-08-25] MEDS: predniSONE 20 MG TAB PO SCH (09:19)
[2020-08-25] MEDS: BIFIDOBACTERIUM INFANTIS 4 MG CAP PO SCH (09:19)
[2020-08-25] MEDS: levoFLOXacin 750MG IV 750 MG in PREMIX BAG 1 BAG IVPB SCH (09:19)
[2020-08-25] MEDS: guaiFENesin ER TAB 600 MG TAB PO SCH ×2 (09:19→20:19)
[2020-08-25] MEDS: IPRATROPIUM/ALBUTEROL 3 ML VIAL NEB SCH ×4 (09:40→20:25)
--- NOTE | 2020-08-25 12:30 | CT ---
EXAM DESCRIPTION: Chest w/o Contrast : Computed Tomography. CLINICAL HISTORY: 75 years Male COVID COMPARISON: Multiple chest radiographs since August 16. TECHNIQUE: Spiral-axial scans at 5 mm intervals through the lungs and thorax without IV contrast. 2. mm lung algorithm axial reconstructions. Coronal and sagittal 2.0 Mm reconstructions. No adverse reactions. Total Exam DLP: 931 mGy-cm. This exam was performed according to our departmental dose-optimization program which includes automated exposure control, adjustment of the mA and/or kV according to patient size and/or use of iterative reconstruction technique; to reduce radiation dose to as low as reasonably achievable (ALARA). Nodule measurements under 10 mm are given as mean value of 3 axes diameters. FINDINGS: Lungs and large airways: Multiple subpleural infiltrates in the bilateral upper lobes with consolidation occupying most of the upper lobes, right middle lobe and lingula. Air bronchograms within the consolidations which are more central. Bilateral lower lobe groundglass nodules subpleural but small bilateral consolidations with air bronchograms. This pattern is consistent with COVID pneumonia and secondary bacterial pneumonia Pleural spaces: No acute pleural process. Bilateral confluent regions of thickening. Mediastinum and Rupal: Evaluation limited due to lack of IV contrast small lymph nodes. No dominant soft tissue masses. Posterior inferior paraesophageal hernia containing blood vessels and fatty tissues with edema in the fat and fluid collection subcarinal. This herniated measures approximately 8.7 x 5.3 cm in the coronal plane with longest axis craniocaudal. 7 cm anteroposterior. Calcifications versus surgical clips in the left side of the hernia sac. Hernia originates from the right side of the aorta through the right diaphragmatic neville and the aortic hiatus.. Great vessels and Heart: Evaluation limited due to lack of IV contrast. Coronary artery calcifications. Calcifications atherosclerotic arch and descending aorta. Common origin of the right innominate artery in left common carotid artery, normal variant. The posterior course of the proximal right innominate artery is resulting in mass effect on the anterior left aspect of the trachea. Soft tissues of neck base, axillae, and chest wall: Evaluation limited due to lack of IV contrast. Normal-sized axillary and subclavian nodes. Upper abdomen: Mesenteric fat in the hernia as previously described. Ascites right upper quadrant. Dilated gallbladder with the gallbladder fossa rotated anteriorly and to the right. Common bile duct dilated. Mesenteric stranding in the epigastric region. Included colon with mild to moderate constipation. No focal lesions in the spleen and adrenal glands or liver but this is a noncontrast study. Osseous structures: Minimal spondylosis in the thoracic spine. Partial compression of the T12 vertebral body anterior/centrally and left more than right of unknown age. 3 mm retropulsion of the superior endplate into the canal. Arthrosis shoulders and clavicles and sternum. IMPRESSION: 1. Technically limited study due to patient motion and breathing. Imaging features of the chest on CT scan can be seen with COVID-19 pneumonia, though are nonspecific and can occur with a variety of infectious and noninfectious processes. Reference: https://pubs.rsna.org/doi/full/10.1148/ryct.0500178056. Bilateral consolidations and air bronchograms are suggestive of bilateral bacterial pneumonia involving upper and lower lobes and probable secondary bacterial pneumonia. Bilateral volume loss and atelectasis also. 2. Posterior inferior mediastinal hernia containing mesenteric fat and blood vessels and is paraesophageal, but not involving the stomach. [place]ak complicating inflammatory fatty changes and fluid within the hernia. Originating through the right diaphragmatic neville and aortic hiatus. Age unknown. 3. Ascites in the right upper quadrant and abutting the gallbladder with possible inflammatory changes as well as mild dilation of the common bile duct. Pancreas is unremarkable but evaluation limited due to lack of IV contrast. 4. Partial compression of the anterior and central T12 vertebral body left more than right. Canal narrowed by 3 mm retropulsion of the superior endplate. Age of fracture indeterminate. 5. Normal variant of common origin of the right innominate artery and the left common carotid artery. Vessels course posteriorly from the origin with the right innominate artery exhibiting mass effect on the trachea with deviation to the right of midline. Electronically signed by: Star Desir MD 08/25/2020 12:28 PM BODY SHOP TECHNICIAN
--- NOTE | 2020-08-25 15:43 | PN ---
SUPERVISING PHYSICIAN: Gallito Rankin MD DATE: 08/25/20 SUBJECTIVE: The patient is sitting up in bed. He says he feels tired and short of breath. I explained to him that he may have a gallbladder issue and that we were doing further testing. I also explained to him that I had talked to his son in regards to his clinical situation and he voiced understanding. OBJECTIVE: VITAL SIGNS: Temperature 97.3, heart rate 65, blood pressure 125/73, respiratory rate 16, O2 saturation 95% on 10 liters high flow nasal cannula. RESPIRATORY: Diminished throughout. CARDIAC: Regular rate and rhythm. GASTROINTESTINAL: Abdomen is soft. It is very mildly tender in the epigastric and left and right upper quadrants. Bowel sounds are positive. NEUROLOGIC: Awake, alert and oriented times three. LABORATORY: WBCs 13,400, hemoglobin 16.6, hematocrit 49.9 He has a left shift on differential. D-dimer 332. Electrolytes are basically within normal limits with the exception of his magnesium slightly high at 3. Total bilirubin 4.3. Liver enzymes are within normal limits. C-reactive protein 8.6. RADIOLOGY: Chest shows mild increased pneumonia. CT of the chest shows 1) Technically limited study due to patient motion and breathing. Imaging features of the chest on CT scan can be seen with COVID-19 pneumonia although they are nonspecific and can occur with a variety of infectious and noninfectious processes. Bilateral consolidations and airspace bronchograms are suggestive of a bilateral bacterial pneumonia involving upper and lower lobe and probably secondary bacterial pneumonia. Bilateral volume loss and atelectasis also. 2) Posterior inferior mediastinal hernia containing mesenteric fat and blood vessels and is paraesophageal, but not involving the stomach. [place]ak complicating inflammatory fatty changes and fluid within the hernia. Originating through the right diaphragmatic neville and aortic hiatus. Age unknown. 3) Ascites in the right upper quadrant and abutting the gallbladder with possible inflammatory changes as well as mild dilation of the common bile duct. Pancreas is unremarkable but evaluation limited due to lack of IV contrast. 4) Partial compression of the anterior and central T12 vertebral body left more than right. Canal narrowed by 3 mm retropulsion of the superior endplate. Age of fracture indeterminate. 5) Normal variant of common origin of the right innominate artery and the left common carotid artery. Vessels course posteriorly from the origin with the right innominate artery exhibiting mass effect on the trachea with deviation to the right of midline. ASSESSMENT: 1. Acute hypoxemic respiratory failure. 2. COVID-19 pneumonitis. 3. Bilateral bacterial pneumonia, presently on Levaquin. 4. Cholecystitis with dilation of common bile duct. 5. Liver ascites in a patient that is a heavy drinker. 6. Hyperbilirubinemia, most likely secondary to cholecystitis. 7. Hypertension. PLAN: The patient may have cholecystitis with enlarged bile duct, so I have ordered a CT scan of the abdomen and pelvis with IV contrast. We will need a sonogram as soon as sonography is available. I discussed his case with Dr. Desir, radiologist, as well as Dr. Rankin. I will consult Dr. Angulo. I will continue with aggressive pulmonary hygiene and titrate his oxygen as tolerated. I repeated his lab for in the morning. After further investigation, it was found that the patient does drink quite heavily at home and has for many years. I am still not quite sure how much he actually does drink, but it is significantly more than he initially admitted. At this point, I have also ordered a hepatitis panel as well as anemia panel. [facility][id number] [facility]
[2020-08-25] MEDS: IV SET AND CAP CHANGE INJ INJ SCH (17:35)
--- NOTE | 2020-08-25 17:52 | CT ---
CT ABDOMEN PELVIS WITHOUT THEN WITH IV CONTRAST CLINICAL STATEMENT: elevated bilirubin COMPARISON: CT chest dated 08/25/2020. This exam was performed according to our departmental dose-optimization program which includes automated exposure control, adjustment of the mA and/or kVp according to patient size and/or use of iterative reconstruction technique where applicable. FINDINGS: Moderate upper abdominal ascites. Liver, spleen, pancreas, gallbladder, adrenal glands and kidneys are within normal limits. No hydronephrosis or biliary dilatation. No dilated loops of bowel to suggest obstruction. Moderate amount stool in the colon. Mild diffuse colonic diverticulosis without focal CT evidence for acute diverticulitis. No abdominal or pelvic lymphadenopathy. Abdominal aorta mildly calcified without aneurysm. Bladder is unremarkable. IMPRESSION: Moderate upper abdominal ascites. This is nonspecific. No significant biliary dilatation. Moderate diffuse colon diverticulosis without focal CT findings of acute diverticulitis. Electronically signed by: Kulwant Perez MD 08/25/2020 5:51 PM PREDATORY GAME HUNTER
[2020-08-25] MEDS: ENOXAPARIN SODIUM 40 MG/0.4 ML SYG SUBCU SCH (20:18)
[2020-08-26] MEDS: PANTOPRAZOLE SODIUM TAB 40 MG PO SCH (06:18)
[2020-08-26] MEDS: IPRATROPIUM/ALBUTEROL 3 ML VIAL NEB SCH ×4 (09:30→22:50)
[2020-08-26] MEDS: predniSONE 20 MG TAB PO SCH (10:46)
[2020-08-26] MEDS: BIFIDOBACTERIUM INFANTIS 4 MG CAP PO SCH (10:46)
[2020-08-26] MEDS: levoFLOXacin 750MG IV 750 MG in PREMIX BAG 1 BAG IVPB SCH (10:46)
[2020-08-26] MEDS: guaiFENesin ER TAB 600 MG TAB PO SCH ×2 (10:46→20:57)
[2020-08-26] MEDS: ENOXAPARIN SODIUM 40 MG/0.4 ML SYG SUBCU SCH (20:57)
[2020-08-27] MEDS: PANTOPRAZOLE SODIUM TAB 40 MG PO SCH (05:58)
--- NOTE | 2020-08-27 08:14 | PN ---
SUPERVISING PHYSICIAN: Gallito Rankin MD DATE: 08/26/20 SUBJECTIVE: The patient is sitting up in bed. He denies chest pain, nausea, vomiting. He says his shortness of breath is only minimal with exertion. He feels much better than he did yesterday. OBJECTIVE: VITAL SIGNS: Temperature 97.8, heart rate 98, blood pressure 141/87, respiratory rate 22, O2 saturation 92% on 8 liters Airvo. RESPIRATORY: Diminished at the bases. CARDIAC: Regular rate and rhythm NEUROLOGIC: Awake, alert and oriented times three. LABORATORY: WBCs 14,500, hemoglobin 16.5, hematocrit 49.9 He has a left shift on differential. D-dimer 746. Electrolytes are basically within normal limits. His total bilirubin is down to 2.5. C-reactive protein 5.8. All other labs and films have been reviewed via the EMR. ASSESSMENT: 1. Acute hypoxemic respiratory failure. 2. COVID-19 pneumonitis. 3. Bilateral bacterial pneumonia, presently on Levaquin. 4. Cholecystitis with dilatation of common bile duct. 5. Liver ascites in a patient that is a heavy drinker. 6. Hyperbilirubinemia, most likely secondary to cholecystitis, slightly improved. 7. Hypertension. PLAN: We will continue present supportive care including COVID-19 guidelines. We will titrate oxygen a tolerated. We will continue with aggressive pulmonary hygiene. Dr. Angulo will follow as far as his abdominal issues go. I will order a sonogram of the abdomen tomorrow morning, repeat his lab for tomorrow. We will continue to monitor closely and follow as needed. [id number] [facility]
[2020-08-27] MEDS: guaiFENesin ER TAB 600 MG TAB PO SCH ×2 (09:08→20:32)
[2020-08-27] MEDS: BIFIDOBACTERIUM INFANTIS 4 MG CAP PO SCH (09:09)
[2020-08-27] MEDS: predniSONE 20 MG TAB PO SCH (09:09)
[2020-08-27] MEDS: levoFLOXacin 750MG IV 750 MG in PREMIX BAG 1 BAG IVPB SCH (09:10)
[2020-08-27] MEDS: IPRATROPIUM/ALBUTEROL 3 ML VIAL NEB SCH ×4 (09:31→21:38)
--- NOTE | 2020-08-27 13:34 | CONS ---
DATE OF CONSULTATION: 08/26/20 REASON FOR CONSULTATION: Elevated bilirubin, possible cholecystitis. HISTORY OF PRESENT ILLNESS: This is a 75-year-old man admitted on 08/16/20 with COVID pneumonitis, hypoxia and sepsis secondary to the above and history of hypertension. He also has a history of inguinal hernia repair, knee replacement and history of alcohol use, unclear how much. I am called because of an elevated bilirubin that came rather suddenly, also white count of 14. A CT scan of his chest showed a distended gallbladder and hyperbilirubinemia with suspicion for cholecystitis. PAST MEDICAL HISTORY: As above. He was treated for COVID. He is still here recovering and is still having some shortness of breath. He does not complain any abdominal pain, but there was mild tenderness in the epigastrium. PAST SURGICAL HISTORY: As above. SOCIAL HISTORY: As above. REVIEW OF SYSTEMS: HEENT: No headache, visual changes, sore throat. RESPIRATORY: No cough or wheeze. CARDIOVASCULAR: No chest pain or palpitations. He does have some shortness of breath. He has not been particularly active. GASTROINTESTINAL: No nausea, vomiting, diarrhea. PHYSICAL EXAMINATION: VITAL SIGNS: Afebrile. Temperature 97.4, heart rate 70, blood pressure 140/60s, O2 saturation 92% on high flow O2. He has been on oral intake with adequate urine output. Other than his respiratory issues, the patient's abdominal exam is benign. He is non-icteric. LABORATORY: White blood cell count 14, hematocrit 49, platelet count 175,000. No bandemia. D-dimer 746 from 332 the day prior, done daily. BMP is normal. Bilirubin had gone to 4.3. On 08/26/11, it is 2.5. Transaminases are normal. Albumin 2.5. Hepatitis serology was normal. INR 1.4. We do not have a lipase. RADIOLOGY: CT abdomen and pelvis which was done after we got alerted from the CT of the chest shows multiple pleural infiltrates and air bronchograms, ascites in the right upper quadrant and possible inflammatory changes of the gallbladder, mild dilation of the common duct, normal pancreas. CT abdomen and pelvis I reviewed. Official reading is moderate abdominal ascites. My impression, the liver does look small, normal contour, but possibly history of cirrhosis on the liver. We will get more into his history on that. The gallbladder and everything else appears within normal limits. There is no evidence of obstruction, so besides mild ascites, biliary ductal dilation, the system looks normal. The CT scan is essentially normal. IMPRESSION/PLAN: Elevated bilirubin, some concern for possible cholecystitis. Recent CT scan looks normal. We do not have ultrasound capability at this time, but as soon as we do, we will get an ultrasound to rule out gallstones. If he does have underlying liver disease, this could account for the appearance seen and concern for thickened gallbladder and the ascites. There is no evidence of acute abdomen at this time, no evidence of infection or sepsis, so we will continue observation. [id number] [facility]
--- NOTE | 2020-08-27 15:13 | PN ---
SUPERVISING PHYSICIAN: Gallito Rankin MD DATE: 08/27/20 SUBJECTIVE: The patient now is on 7 liters nasal cannula and maintaining 93%. He is not in any distress. He is not complaining of abdominal pain. He has had no nausea or vomiting. Otherwise, he seems to be doing fairly well. He has been off BiPAP now for 24 hours. OBJECTIVE: VITAL SIGNS: Temperature 97.2, pulse 69, blood pressure 140/85, respirations 18, saturation 94% on 7 liters nasal cannula, high flow. GENERAL: The patient is resting comfortably with nasal cannula in place. He is not in any distress. CHEST: Lung sounds show a notable rhonchi heard in the left upper lobe with some mild inspiratory and expiratory wheezing. Otherwise, both lung bases are diminished. HEART: Regular rate and rhythm. ABDOMEN: Obese, but soft and nontender. Positive bowel sounds. NEUROLOGIC: Alert and oriented times three. LABORATORY: White count is down to 11,400, hemoglobin 15.7, hematocrit 46.3, platelet count 138,000. Differential does show a left shift. Coagulation studies show D-dimer 768. Chemistries show sodium 134, BUN 17, creatinine 0.63. Bilirubin now down to 2.8. Liver functions remain within normal limits. C- reactive protein 3.1. MICROBIOLOGY: Blood cultures show no growth at 5 days. RADIOLOGY: No repeat radiographic studies today. ASSESSMENT: 1. Acute hypoxemic respiratory failure. 2. COVID-19 pneumonitis. 3. Bilateral bacterial pneumonia, presently on Levaquin. 4. Cholecystitis with dilatation of common bile duct. 5. Liver ascites in a patient that is a heavy drinker. 6. Hyperbilirubinemia, most likely secondary to cholecystitis, slightly improved. 7. Hypertension. PLAN: We will continue current treatment with antibiotics with Levaquin. I will continue with his Levaquin for at least 7 to 10 days. Given his history of alcoholism, he is certainly at high risk for community acquired pneumonia. He remains on Protonix. He is now on prednisone 40 mg daily and seems to be doing okay with that. We will continue Lovenox and monitor D-dimer. We will continue with aggressive pulmonary hygiene with albuterol treatments. He seems to be doing better with the nebulizer treatments. We will continue to titrate his oxygen down as his oxygen saturations allow. Dr. Angulo is still following the patient in regards to elevated bilirubin for further evaluation and needs regarding his abdominal issues with Dr. Angulo. He does have a pending abdominal scan which was not able to be done today due to the facility had no sono techs available. Until the patient can transition to outpatient management, we will continue to monitor and treat as needed. #[id number] [facility]
[2020-08-27] MEDS: PROMETHAZINE W/CODEINE SYR 6.25 MG/10 MG/5 ML UD PO PRN ×2 (19:17→23:34)
[2020-08-27] MEDS: ENOXAPARIN SODIUM 40 MG/0.4 ML SYG SUBCU SCH (20:32)
[2020-08-28] MEDS: PANTOPRAZOLE SODIUM TAB 40 MG PO SCH (05:51)
[2020-08-28] MEDS ORDERED: amLODIPine BESYLATE 5 MG TAB ONE (07:53)
[2020-08-28] MEDS ORDERED: POTASSIUM CHLORIDE 10 MEQ TAB PO ONE (07:54)
[2020-08-28] MEDS ORDERED: METOPROLOL TARTRATE INJ 5 MG/5 ML VIAL IV ONE (07:54)
[2020-08-28] MEDS ORDERED: METOPROLOL SUCCINATE XL 25 MG TAB PO ONE (07:54)
[2020-08-28] MEDS ORDERED: LOSARTAN POTASSIUM 100 MG TAB ONE (07:54)
[2020-08-28] MEDS ORDERED: CHLORTHALIDONE 25 MG TAB ONE (07:54)
[2020-08-28] MEDS ORDERED: FUROSEMIDE 40 MG TAB ONE (07:54)
--- NOTE | 2020-08-28 08:13 | RAD ---
EXAM DESCRIPTION: Chest,1 View CLINICAL HISTORY: 75 years Male, COVID PNA COMPARISON: 08/25/2020. TECHNIQUE: AP portable chest. FINDINGS/IMPRESSION: The lung volumes are decreased. Bilateral peripheral lung predominant airspace opacities are stable to slightly increased when compared to the previous examination and consistent with viral pneumonia. No significant pleural effusion or pneumothorax. The heart is normal in size. No acute osseous abnormality. Electronically signed by: Atul Mathew DO 08/28/2020 8:11 AM [facility]
[2020-08-28] MEDS: guaiFENesin ER TAB 600 MG TAB PO SCH ×2 (09:15→21:02)
[2020-08-28] MEDS: BIFIDOBACTERIUM INFANTIS 4 MG CAP PO SCH (09:15)
[2020-08-28] MEDS: predniSONE 20 MG TAB PO SCH (09:15)
[2020-08-28] MEDS: IPRATROPIUM/ALBUTEROL 3 ML VIAL NEB SCH ×4 (09:35→21:18)
[2020-08-28] MEDS: PROMETHAZINE W/CODEINE SYR 6.25 MG/10 MG/5 ML UD PO PRN ×3 (09:40→21:30)
[2020-08-28] MEDS: levoFLOXacin 750MG IV 750 MG in PREMIX BAG 1 BAG IVPB SCH (10:30)
--- NOTE | 2020-08-28 11:01 | US ---
EXAM DESCRIPTION: Abdomen sonogram, complete CLINICAL HISTORY: Abdominal pain. Elevated bilirubin COMPARISON: [None.] FINDINGS: Gallbladder is partially filled with sludge. . Gallbladder wall thickness 4 mm Common bile duct not visualized. No intrahepatic duct dilation. Liver evaluation is limited. No diagnostic abnormality of the visualized portions. Spleen normal in size and echotexture Pancreas is is not seen secondary to overlying bowel gas and body habitus. Visualized abdominal aorta and inferior vena cava are normal Right kidney and left kidney are normal IMPRESSION: Suboptimal evaluation. Gallbladder filled with sludge. Common bile duct not visualized. No intrahepatic duct dilation Electronically signed by: Gallito Iverson MD 08/28/2020 10:59 AM [employer]OR
[2020-08-28] MEDS: IV SET AND CAP CHANGE INJ INJ SCH (15:10)
--- NOTE | 2020-08-28 16:08 | PN ---
SUPERVISING PHYSICIAN: Gallito Rankin MD DATE: 08/28/20 SUBJECTIVE: The patient actually looks to be doing a little better today. He was up to the side of the bed eating lunch. He is still wearing fairly high flow oxygen at 6 liters. He is tolerating that well. He has had no further complaints, no abdominal pain, no nausea, vomiting or diarrhea. OBJECTIVE: VITAL SIGNS: Temperature 97.5, pulse 63, blood pressure 120/87, respirations 20, saturation 93-95% on 6 liters high flow nasal cannula. GENERAL: The patient is resting comfortably with nasal cannula in place. He is not in any distress. CHEST: Lung sounds show a notable rhonchi heard in the left upper lobe with some mild inspiratory and expiratory wheezing. Otherwise, both lung bases are diminished. HEART: Regular rate and rhythm. ABDOMEN: Obese, but soft and nontender. Positive bowel sounds. NEUROLOGIC: Alert and oriented times three. LABORATORY: White count continues to be slightly elevated at 12,900, with stable hemoglobin 15.9, hematocrit 47.6. Differential shows a continued left shift. Coagulation studies were not completed today. Chemistries show normal electrolytes. Creatinine remains normal at 0.54. Glucose 102, calcium 8.5. Magnesium has been stable at 2.5. Bilirubin today is down to 2.2. Liver enzymes remain normal. MICROBIOLOGY: Blood cultures are negative after 5 days. RADIOLOGY: Repeat chest x-ray this morning per radiologic interpretation shows lung volumes decreased with bilateral peripheral lung predominantly airspace opacities, stable to slightly increased compared to previous exam, consistent with viral pneumonia. No significant pleural effusion or pneumothorax. He also had abdominal ultrasound which showed suboptimal evaluation, but gallbladder was filled with sludge. Common bile duct was not visualized. There was no intrahepatic duct dilation. ASSESSMENT: 1. Acute hypoxemic respiratory failure. 2. COVID-19 pneumonitis. 3. Bilateral bacterial pneumonia, presently on Levaquin. 4. Cholecystitis with dilatation of common bile duct. 5. Liver ascites in a patient that is a heavy drinker. 6. Hyperbilirubinemia, most likely secondary to cholecystitis, slightly improved. 7. Hypertension. PLAN: We will continue with another day of Levaquin. He has finished all other treatments. We just need to make sure he has finished a full course of Levaquin between 7 and 10 days, at which time I think we can discontinue that. Hopefully, he will be able to continue to titrate his oxygen down at least to nasal cannula at 4 liters at which point we could discharge him. He does remain on prednisone. We may need to start titrating that off at some point if he does not go home in the next day or two. We will Lovenox for his D-dimer as needed. He does remain on aggressive pulmonary hygiene. I have actually added chest percussive therapy to see if this will help. Dr. Angulo is still following the patient. He has had no abdominal pains. His bilirubin is normalizing. I anticipate him hopefully that we can probably discharge him in the next 48 to 72 hours depending on how he titrates his oxygen needs. Until the patient can transition to outpatient management, we will continue to monitor and treat as needed. [facility][id number] [facility]
[2020-08-28] MEDS: ENOXAPARIN SODIUM 40 MG/0.4 ML SYG SUBCU SCH (21:02)
[2020-08-29] MEDS: PROMETHAZINE W/CODEINE SYR 6.25 MG/10 MG/5 ML UD PO PRN (01:28)
[2020-08-29] MEDS: PANTOPRAZOLE SODIUM TAB 40 MG PO SCH (06:00)
[2020-08-29] MEDS: IPRATROPIUM/ALBUTEROL 3 ML VIAL NEB SCH ×4 (09:00→21:16)
[2020-08-29] MEDS: BIFIDOBACTERIUM INFANTIS 4 MG CAP PO SCH (09:29)
[2020-08-29] MEDS: predniSONE 20 MG TAB PO SCH (09:29)
[2020-08-29] MEDS: guaiFENesin ER TAB 600 MG TAB PO SCH ×2 (09:29→21:42)
[2020-08-29] MEDS: levoFLOXacin 750MG IV 750 MG in PREMIX BAG 1 BAG IVPB SCH (09:29)
[2020-08-29] MEDS: HALOPERIDOL LACTATE INJ 5 MG/ML VIAL IM PRN ×2 (15:13→21:43)
--- NOTE | 2020-08-29 15:31 | PN ---
DATE: 08/29/20 Followup for possible cholecystitis. SUBJECTIVE: The patient has no complaints today, no abdominal pain, no nausea or vomiting. No postprandial pain, no diarrhea. Ultrasound was performed which showed some sludge, 4 mm duct, limited liver evaluation and common duct not visualized, suboptimal exam. OBJECTIVE: VITAL SIGNS: He has been afebrile. T-max 99. Pulse in 90s. Oxygen saturation 92% on high flow oxygen. Adequate urine output. LABORATORY: White count 12, hematocrit 47, total bilirubin 2.2, this has come down. Other transaminases are normal. Hepatitis panel normal. IMPRESSION: Hyperbilirubinemia, mostly direct fraction. He does have some sludge and a slight thickened wall gallbladder. This would be some suggestion of possible liver disease from alcohol use in the past but at this time, the exam is benign and he is having no pain so I do not think he has acute cholecystitis. We will continue watching him for any sign of complications. Otherwise, continue medical management for his Covid and respiratory issues and he can have a regular low-fat diet. #[id number] [facility]
--- NOTE | 2020-08-29 16:34 | PN ---
SUPERVISING PHYSICIAN: Gallito Rankin MD DATE: 08/29/20 SUBJECTIVE: The patient is resting up in bed at this time. It was reported earlier that the patient became very confused and had increasing oxygen requirements. He had some visual hallucinations. His son did come to visit him and he was able to reorient him. OBJECTIVE: VITAL SIGNS: Temperature 99, heart rate 98, blood pressure 130/80, respiratory rate 24, O2 saturation 92% on 15 liters Airvo. RESPIRATORY: Diminished throughout. CARDIAC: Regular rate and rhythm. ABDOMEN: Soft, nondistended, non-tender. Bowel sounds are positive. NEUROLOGIC: Slightly sedated but opens his eyes to command. LABORATORY: PC02 is 38, PO2 is 60, pH 7.47, oxygen saturation of 92.3%. ASSESSMENT: 1. Acute hypoxemic respiratory failure. 2. COVID-19 pneumonitis. 3. Bilateral bacterial pneumonia, presently on Levaquin. 4. Hospital psychosis. 5. Cholecystitis with dilatation of common bile duct. 6. Liver ascites in a patient that is a heavy drinker. 7. Hyperbilirubinemia, 8. Hypertension. PLAN: We will continue present supportive care. I have ordered some Haldol for the hospital psychosis. Hopefully, that will keep him comfortable. We will again titrate his oxygen as tolerated. I have ordered lab and chest x-ray for in the morning. #[id number] [facility]
[2020-08-29] MEDS: ENOXAPARIN SODIUM 40 MG/0.4 ML SYG SUBCU SCH (21:31)
[2020-08-30] MEDS: PANTOPRAZOLE SODIUM TAB 40 MG PO SCH (06:13)
[2020-08-30] MEDS: predniSONE 20 MG TAB PO SCH (07:25)
[2020-08-30] MEDS: guaiFENesin ER TAB 600 MG TAB PO SCH ×2 (07:25→20:32)
[2020-08-30] MEDS: BIFIDOBACTERIUM INFANTIS 4 MG CAP PO SCH (07:25)
[2020-08-30] MEDS ORDERED: HALOPERIDOL LACTATE INJ 5 MG/ML VIAL ONE (08:40)
[2020-08-30] MEDS: IPRATROPIUM/ALBUTEROL 3 ML VIAL NEB SCH ×4 (09:00→21:09)
--- NOTE | 2020-08-30 09:33 | RAD ---
: 1945. Technique: Portable AP chest x-ray. Comparison: August 28, 2020. Clinical history: covid. Heart size: Normal. Lungs: Shallow inspiration. Extensive bilateral airspace infiltrates consistent with viral pneumonia. No appreciable change although the left diaphragm contour is less well-defined now and could be indicative of progression in the left lower lobe. Pleura: No pleural effusion. No pneumothorax. Mediastinum and jose: Unremarkable. Skeletal: Unremarkable. Support tubings: None. Impression: 1. Bilateral pneumonia. Electronically signed by: Poncho Damon MD 08/30/2020 9:31 AM [facility]
[2020-08-30] MEDS: levoFLOXacin 750MG IV 750 MG in PREMIX BAG 1 BAG IVPB SCH (10:08)
--- NOTE | 2020-08-30 12:48 | PN ---
SUPERVISING PHYSICIAN: Gallito Rankin MD DATE: 08/30/20 SUBJECTIVE: The patient is lying in bed asleep. His son is at the bedside. He is less confused today than yesterday but it does help when the son is in the room. The patient denies any worsening shortness of breath or chest pain. His son and I did discuss that the patient's bilirubin had worsened and that due to multiple comorbidities, we may try to transfer the patient after I speak with Dr. Angulo. OBJECTIVE: VITAL SIGNS: Temperature 98.6, heart rate 93, blood pressure 141/87, respiratory rate 20, O2 saturation 96% on BiPAP. RESPIRATORY: Diminished throughout, although there are some bowel sounds heard up in the lower chest area, especially periumbilical. CARDIAC: Regular rate and rhythm. NEUROLOGIC: He is awake, answers some simple questions appropriately. LABORATORY: WBCs 15,300, hemoglobin 16.5, hematocrit 49.1. He has a left shift on his differential. D-dimer is down to 546. Electrolytes are basically within normal limits. Bilirubin is 5.7. Direct and indirect are pending. Liver enzymes are within normal limits. C-reactive protein is 5.6. Hepatitis panel is pending. RADIOLOGY: Chest x-ray shows bilateral pneumonia. ASSESSMENT: 1. Acute hypoxemic respiratory failure. 2. COVID-19 pneumonitis. 3. Bilateral bacterial pneumonia, presently on Levaquin. 4. Hyperbilirubinemia, 5. Cholecystitis with dilatation of common bile duct. 6. Liver ascites in a patient that is a heavy drinker. 7. Hospital psychosis. 8. Hypertension. PLAN: We will continue present supportive care. I will discuss transfer with Dr. Angulo and if he recommends transfer for evaluation of his gallbladder, I will begin that process. For now, I have ordered lab for in the morning. I will hold on a chest x-ray. His benjamin will need to be discontinued as soon as clinically appropriate. #[id number] ADDENDUM: 16:45 Spoke with hospitalist and in [place] at [facility], in regard to transfer. Dr. Gilman recommended and MRCP and lab test (GGT, Haptoglobin, fibrinogen) tomorrow. Depending on results, will re-evaluate transfer tomorrow. [facility]
[2020-08-30] MEDS: ENOXAPARIN SODIUM 40 MG/0.4 ML SYG SUBCU SCH (20:32)
[2020-08-31] MEDS: PANTOPRAZOLE SODIUM TAB 40 MG PO SCH (05:47)
[2020-08-31] MEDS: IPRATROPIUM/ALBUTEROL 3 ML VIAL NEB SCH ×4 (07:58→20:30)
[2020-08-31] MEDS: guaiFENesin ER TAB 600 MG TAB PO SCH ×2 (08:35→20:43)
[2020-08-31] MEDS: BIFIDOBACTERIUM INFANTIS 4 MG CAP PO SCH (08:35)
[2020-08-31] MEDS: predniSONE 20 MG TAB PO SCH (08:35)
[2020-08-31] MEDS: levoFLOXacin 750MG IV 750 MG in PREMIX BAG 1 BAG IVPB SCH (08:36)
--- NOTE | 2020-08-31 08:52 | PN ---
DATE: 08/30/20 FOLLOWUP FOR ELEVATED BILIRUBIN SUBJECTIVE: The patient has no new complaints. He is still on oxygen and having difficulty breathing. He does not complain of abdominal pain. OBJECTIVE: VITAL SIGNS: Temperature 97, heart rate 90s, blood pressure 120s/70s, respiratory rate 20, saturation 96% on 10 liters high flow. GENERAL: She is alert and oriented, in no distress. ABDOMEN: Benign. LABORATORY: White count 15, hematocrit 49, platelet count 134. No bandemia. D-dimer 546, total bilirubin 5.7, direct 1.5. AST 34, ALT 49, alkaline phosphatase 89, which are all within normal limits. GGT is elevated. Alkaline phosphatase is normal. RADIOLOGY: Chest x-ray shows continued bilateral pneumonia. Again, his abdominal ultrasound showed some sludge, slightly thickened wall of his gallbladder, but no pericholecystic fluid. CT of his abdomen is essentially normal. ASSESSMENT: 1. COVID. 2. Bilateral pneumonia. 3. Elevated bilirubin with primary indirect fraction. Other liver function tests are normal. His exam is benign, so I do not feel that this is related to his gallbladder at this time or common bile duct obstruction. Elevated GGT could be from multiple sources. Medicine consulted with GI apparently today and they are recommending an MRCP, so that will be ordered tomorrow. [facility][id number] [facility]
[2020-08-31] MEDS: IV SET AND CAP CHANGE INJ INJ SCH (14:21)
[2020-08-31] MEDS: ENOXAPARIN SODIUM 40 MG/0.4 ML SYG SUBCU SCH (20:43)
--- NOTE | 2020-08-31 21:35 | PN ---
SUPERVISING PHYSICIAN: Martir Bernabe M.D. DATE: 08/31/20 SUBJECTIVE: The patient is sitting up in bed. His son is at the bedside. It was reported by nursing that the patient actually tried to eat some yogurt and after several bites was required to go on BiPAP due to shortness of breath. He does get very tachypneic with accessory muscle use with any exertion. Denies nausea, vomiting, diarrhea or constipation. OBJECTIVE: VITAL SIGNS: Temperature 99.6, heart rate 80, blood pressure 147/85, respiratory rate 26, O2 saturation 93% on 10 liters of Airvo. RESPIRATORY: Diminished throughout. CARDIAC: Regular rate and rhythm. GASTROINTESTINAL: Abdomen is soft, nondistended, non-tender. Bowel sounds are positive. NEUROLOGIC: He is awake, alert and oriented times three. LABORATORY: WBCs are 15,200 with hemoglobin 16.1, hematocrit 47.7. He has a left shift on his differential. Haptoglobin is pending. D-dimer is 574. Sodium 132, potassium 4.7, chloride 98, BUN 19, creatinine 0.62, glucose 106. Total bilirubin 4.2, GGT is 231, C reactive protein 5.7. Hepatitis panel is pending. All other labs and films have been reviewed via the EMR. ASSESSMENT: 1. Acute hypoxemic respiratory failure. 2. COVID-19 pneumonitis. 3. Bilateral bacterial pneumonia, presently on Levaquin. 4. Hyperbilirubinemia, 5. Questionable cholecystitis with suspected dilatation of common bile duct with an elevated indirect bilirubin. 6. Liver ascites in a patient that is a heavy drinker. 7. Hospital psychosis. 8. Hypertension. PLAN: We will continue present supportive care. I have ordered lab for in the morning as well as a chest x-ray. We had multiple attempts at transferring the patient but there was either no available beds or they felt that a transfer would not change his plan of care. I had a lengthy discussion with his family about his status and hopefully he will improve. Will monitor and treat as needed. #[id number] [facility]
[2020-08-31] MEDS ORDERED: LIDOCAINE HCL 2% (MOUTH-THROAT) 15 ML UD ONE (21:50)
[2020-08-31] MEDS ORDERED: diphenhydrAMINE HCL 12.5 MG/5 ML UD ONE (21:50)
[2020-08-31] MEDS ORDERED: NYSTATIN SUSPENSION 500,000/5 ML UD ONE ×2 (21:52)
[2020-08-31] MEDS ORDERED: ALUMINUM & MAGNESIUM HYDROXIDE 30 ML UD ONE (21:52)
[2020-08-31] MEDS: LIDOCAINE VISCOUS 2% 15 ML, diphenhydrAMINE HCL 37.5 MG, NYSTATIN SUSPENSION 15 ML, ALU... PO PRN ×4 (22:47)
[2020-09-01] MEDS: LIDOCAINE VISCOUS 2% 15 ML, diphenhydrAMINE HCL 37.5 MG, NYSTATIN SUSPENSION 15 ML, ALU... PO PRN ×8 (04:53→21:19)
[2020-09-01] MEDS: PANTOPRAZOLE SODIUM TAB 40 MG PO SCH (05:58)
--- NOTE | 2020-09-01 07:13 | RAD ---
EXAM: Single view chest. INDICATION: Covid. COMPARISON: Chest x-ray: 08/30/2020. FINDINGS: Low volume lungs again demonstrate diffuse interstitial and airspace opacities. Stable elevation of the right hemidiaphragm. Heart size is stable. No pneumothorax. Bones are unchanged. IMPRESSION: No significant change compared to the prior exam Electronically signed by: Cristian Richardson MD 09/01/2020 7:11 AM [employer]
[2020-09-01] MEDS: BIFIDOBACTERIUM INFANTIS 4 MG CAP PO SCH (08:39)
[2020-09-01] MEDS: predniSONE 20 MG TAB PO SCH (08:39)
[2020-09-01] MEDS: guaiFENesin ER TAB 600 MG TAB PO SCH ×2 (08:39→21:18)
[2020-09-01] MEDS: IPRATROPIUM/ALBUTEROL 3 ML VIAL NEB SCH ×4 (08:58→19:45)
--- NOTE | 2020-09-01 15:45 | PN ---
SUPERVISING PHYSICIAN: Martir Bernabe MD DATE: 09/01/20 SUBJECTIVE: The patient is still requiring high flow oxygen via nasal cannula via the Airvo system. He is not really complaining of anything other than just ready to go home. He has been on and off BiPAP. He does not like to be on BiPAP and to be given either some Haldol or Ativan. OBJECTIVE: VITAL SIGNS: Temperature 97.8, pulse 109, blood pressure 148/84, respirations 20, saturation 93% on high flow nasal cannula via Airvo system. RESPIRATORY: Diminished throughout. CARDIAC: Regular rate and rhythm. GASTROINTESTINAL: Abdomen is soft, nondistended, nontender. Bowel sounds are positive. NEUROLOGIC: He is awake, alert and oriented times three. LABORATORY: White count 13,000 with continued left shift. Coagulation studies show D-dimer 725. Chemistries show stable sodium at 132 with creatinine 0.55. Blood sugar 103. Calcium 8.6. Bilirubin is down to 3.7. Liver functions other than that are within normal limits. He did have a hepatitis panel that was negative for hepatitis C antibodies, B. Please see that report details. RADIOLOGY: Chest x-ray this morning per radiologic interpretation showed no significant change from previous exam, just low lung volume with diffuse interstitial airspace opacities. There is noted stable elevation of the right hemidiaphragm. ASSESSMENT: 1. Acute hypoxemic respiratory failure. 2. COVID-19 pneumonitis. 3. Bilateral bacterial pneumonia. Treated with two weeks of IV antibiotics 4. Hyperbilirubinemia, 5. Questionable cholecystitis with suspected dilatation of common bile duct with an elevated indirect bilirubin. 6. Liver ascites in a patient that is a heavy drinker. 7. Hospital psychosis. 8. Hypertension. PLAN: We will continue to titrate the patient off of high flow oxygen as possible. He has finished his antibiotics. He has been on antibiotics now for at least 14 days including Rocephin, azithromycin and Levaquin. He has completed the regimen of remdesivir. He does remain on steroids in the form of p.o. prednisone. He is on aggressive pulmonary hygiene. Dr. Angulo continues to follow the patient in regards to the elevated bilirubin. GI was visited with and recommended MRCP, however, the patient is not able to tolerate being off oxygen at this time and it is not feasible to do any kind of further testing in regards to the bilirubin. He has not really had any complaints of abdominal pain. Bilirubin seems to be returning to baseline levels. We will continue to monitor that as possible. Again, discussion with family as they adamant that the patient be transferred, which this is in process, however, the patient seems to be fairly well. We will continue to titrate his oxygen down as tolerated. Until the patient can transfer the patient or transition to outpatient management, we will continue to monitor and treat as needed. #[id number] [facility]
[2020-09-01] MEDS: ENOXAPARIN SODIUM 40 MG/0.4 ML SYG SUBCU SCH (21:18)
[2020-09-02] MEDS: LIDOCAINE VISCOUS 2% 15 ML, diphenhydrAMINE HCL 37.5 MG, NYSTATIN SUSPENSION 15 ML, ALU... PO PRN ×8 (04:15→16:25)
[2020-09-02] MEDS: PANTOPRAZOLE SODIUM TAB 40 MG PO SCH (06:02)
[2020-09-02] MEDS: HALOPERIDOL LACTATE INJ 5 MG/ML VIAL IM PRN (07:50)
[2020-09-02] MEDS: guaiFENesin ER TAB 600 MG TAB PO SCH ×2 (08:11→20:34)
[2020-09-02] MEDS: BIFIDOBACTERIUM INFANTIS 4 MG CAP PO SCH (08:11)
[2020-09-02] MEDS: predniSONE 20 MG TAB PO SCH (08:11)
[2020-09-02] MEDS: IPRATROPIUM/ALBUTEROL 3 ML VIAL NEB SCH ×4 (09:00→20:00)
--- NOTE | 2020-09-02 11:19 | CONS ---
DATE OF CONSULTATION: 09/02/20 REASON FOR CONSULTATION: Hyperbilirubinemia, pneumonitis, COVID, bilateral pneumonia. HISTORY OF PRESENT ILLNESS: This is a 75-year-old male with a history of hypertension admitted with a previous positive COVID test on August 09, 2020. He decompensated from the pulmonary standpoint, now with bilateral pneumonia. I was consulted due to increasing bilirubin. The patient was receiving Levaquin and bilirubin increased up to 5 grams per deciliter range. Levaquin was discontinued on 08/31/20. Bilirubin has gone down to the 3 range. Liver enzymes remain relatively stable. Imaging shows ultrasonographic evidence of biliary dilation. There are two CT scans showing conflicting information, one showing some intrahepatic dilation and another showing no biliary dilation. Currently, on high flow oxygen. The patient is agitated and confused. PAST MEDICAL HISTORY: 1. Hypertension. PAST SURGICAL HISTORY: 1. Left inguinal hernia. 2. Eye surgery. 3. Left total knee replacement. CURRENT MEDICATIONS: Please see hospital medication reconciliation forms. ALLERGIES: NO KNOWN DRUG ALLERGIES. FAMILY HISTORY: Positive for dementia. SOCIAL HISTORY: Occasional alcohol use. . He lives alone at home. REVIEW OF SYSTEMS: Positive for agitation, shortness of breath. Negative for chest pain or palpitations. Negative for abdominal pain, nausea or vomiting. Negative for dysuria or hematuria. Positive for arthralgias. Negative for icterus, rashes or jaundice. Positive for confusion and disorientation. PHYSICAL EXAMINATION: VITAL SIGNS: On high flow oxygen, oxygen saturation 92%, temperature 98.5, pulse 74, blood pressure 145/82, respirations 25 per minute. GENERAL: The patient is in acute respiratory distress. HEENT: Equality oropharynx. NECK: Supple, nontender. CHEST: Bilateral crackles. HEART: Regular rhythm, tachycardic. ABDOMEN: Soft, nontender, nondistended. No rebound. No Bal sign. BACK: No CVA tenderness. EXTREMITIES: Mild cyanosis. NEUROLOGIC: Awake, alert, but not oriented. Cranial nerves II-XII are grossly intact. SKIN: Warm, pink. LABORATORY: On 08/31/20, bilirubin 4.2, AST 28, ALT 38, alkaline phosphatase 85. C-reactive protein 5.7. On 09/01/20, total bilirubin 3.7, AST 27, ALT 34, alkaline phosphatase 80. IMAGING: CT scan of the chest without contrast shows COVID pneumonia with bilateral consolidations. A posterior inferior mediastinal hernia containing mesenteric fat and blood vessels without involvement of the stomach. There is description of [place] complicating inflammatory fatty change and fluid within the hernia originating through the right diaphragmatic neville and aortic hiatus. This seems to be chronic process. There is also mention of ascites in the right upper quadrant and abutting the gallbladder with possible inflammatory changes as well as mild dilation of the common bile duct. Pancreas is unremarkable with evaluation limited due to lack of IV contrast. A CT scan of the abdomen with and without contrast shows evidence of abdominal ascites which is nonspecific, no significant biliary dilation, moderate diffuse colon diverticulosis without focal CT scan finding of acute diverticulitis. ASSESSMENT: 1. Bilateral COVID pneumonia. 2. Elevated bilirubin, likely multifactorial. Etiology may relate to increased right cardiac pressures due to bilateral pneumonia in combination with antibiotic use. Intrinsic liver disease is possible. There is no major evidence of biliary dilation. There is conflicting information about mild common bile duct dilation on CT scan without contrast, does not show in CT scan with contrast. Bilirubin is trending down after stopping antibiotics. I expect resolution or great improvement of bilirubin almost to normal. RECOMMENDATION: Recommend to continue to follow bilirubin and liver enzymes until normalization and further followup with GI after recovery. If bilirubin remains elevated, consider MRCP. Please call if bilirubin or liver enzymes raise despite general clinical improvement. #[id number] [facility]
[2020-09-02] MEDS ORDERED: ZIPRASIDONE 20 MG CAP PO ONE (11:29)
[2020-09-02] MEDS ORDERED: ZIPRASIDONE 20 MG CAP ONE (11:33)
[2020-09-02] MEDS ORDERED: ZIPRASIDONE INJ 20 MG/ML VIAL IM ONE ×2 (11:50→12:10)
[2020-09-02] MEDS: BUDESONIDE NEBS 0.5 MG/2 ML INH NEB SCH ×2 (13:00→20:00)
--- NOTE | 2020-09-02 13:21 | PN ---
SUPERVISING PHYSICIAN: Martir Bernabe MD DATE: 09/02/20 SUBJECTIVE: The patient is still requiring fairly high amount of oxygen. He is having episodes of confusion and having to use Haldol and Geodon. He will take all his clothes off and his oxygen and desaturates fairly quickly, but does not really get in distress. OBJECTIVE: VITAL SIGNS: Temperature 97.9, blood pressure 133/81, respirations 24, saturation 94% on high flow nasal cannula via Airvo system with FiO2 of 70%. GENERAL: At the time of my exam, the patient is resting comfortably and is cooperative. He was alert, but confused on location. RESPIRATORY: Diminished throughout. CARDIAC: Regular rate and rhythm. GASTROINTESTINAL: Abdomen is soft, nontender. Bowel sounds are positive. EXTREMITIES: No cyanosis, clubbing or edema. NEUROLOGIC: He is alert, but not oriented to location with no obvious neurologic deficits noted on exam. SKIN: Warm, pink and dry. LABORATORY: Only repeat lab today was total bilirubin which is up from yesterday at 4.5. Direct bilirubin 1.3, indirect 3.2. Otherwise, on other lab studies were done today. RADIOLOGY: No repeat radiographic studies today. ASSESSMENT: 1. Acute hypoxemic respiratory failure. 2. COVID-19 pneumonitis. 3. Bilateral bacterial pneumonia. Treated with two weeks of IV antibiotics 4. Hyperbilirubinemia, 5. Questionable cholecystitis with suspected dilatation of common bile duct with an elevated indirect bilirubin. 6. Liver ascites in a patient that is a heavy drinker. 7. Hospital psychosis. 8. Hypertension. PLAN: We will continue current plan of care and following his bilirubin. He is going to be seen by GI specialist, Dr. Coker, today. We will await his consultation note for further recommendations. We will try some Geodon p.o. and get him off the Haldol and see if we can control some of his agitation and confusion, which I think is more owner's at this point. He has finished all his antibiotics after 16 days and remains on Lovenox. I started him on Pulmicort. He remains on prednisone. We will follow his labs and repeat chest x-ray in the morning. We will continue to titrate his oxygen needs down. Until the patient can transition to outpatient management, we will continue to monitor and treat as needed. [facility][id number] [facility]
[2020-09-02] MEDS: ZIPRASIDONE 20 MG CAP PO SCH (16:19)
[2020-09-02] MEDS: ENOXAPARIN SODIUM 40 MG/0.4 ML SYG SUBCU SCH (20:34)
[2020-09-03] MEDS: PANTOPRAZOLE SODIUM TAB 40 MG PO SCH (05:51)
--- NOTE | 2020-09-03 07:16 | RAD ---
EXAM DESCRIPTION: X Ray Chest,1 View CLINICAL HISTORY: 75 years Male, covid COMPARISON: 09/01/2020. FINDINGS: Low lung volumes accentuating the cardiomediastinal silhouette and central vasculature. Diffuse left greater than right mixed airspace interstitial disease again noted. No pneumothorax or pleural effusion. IMPRESSION: Persistent and grossly unchanged diffuse left greater than right bilateral mixed airspace interstitial disease. Electronically signed by: Ezequiel Chacko MD 09/03/2020 7:15 AM HOG OPERATOR
[2020-09-03] MEDS: ZIPRASIDONE 20 MG CAP PO SCH ×2 (07:19→17:06)
[2020-09-03] MEDS: IPRATROPIUM/ALBUTEROL 3 ML VIAL NEB SCH ×4 (07:26→21:00)
[2020-09-03] MEDS: BUDESONIDE NEBS 0.5 MG/2 ML INH NEB SCH ×2 (07:26→21:00)
[2020-09-03] MEDS: predniSONE 20 MG TAB PO SCH (08:14)
[2020-09-03] MEDS: guaiFENesin ER TAB 600 MG TAB PO SCH ×2 (08:14→20:22)
[2020-09-03] MEDS: BIFIDOBACTERIUM INFANTIS 4 MG CAP PO SCH (08:14)
[2020-09-03] MEDS: LIDOCAINE VISCOUS 2% 15 ML, diphenhydrAMINE HCL 37.5 MG, NYSTATIN SUSPENSION 15 ML, ALU... PO PRN ×4 (09:30)
[2020-09-03] MEDS: IV SET AND CAP CHANGE INJ INJ SCH (15:21)
[2020-09-03] MEDS: ENOXAPARIN SODIUM 40 MG/0.4 ML SYG SUBCU SCH (20:22)
[2020-09-04] MEDS ORDERED: VECURONIUM BROMIDE 10 MG VIAL IV ONE (04:00)
[2020-09-04] MEDS ORDERED: ETOMIDATE INJECTION 2 MG/ML 20ML VIAL IV ONE (04:00)
[2020-09-04] MEDS ORDERED: WATER FOR INJ 10 ML VIAL INJ ONE (04:00)
[2020-09-04] MEDS ORDERED: ZIPRASIDONE INJ 20 MG/ML VIAL IM ONE ×2 (04:45→04:49)
[2020-09-04] MEDS ORDERED: PROPOFOL 200 MG/20 ML VIAL IV ONE (05:34)
[2020-09-04] MEDS ORDERED: SODIUM CHLORIDE 0.9% (FLUSH) 10 ML SYG ONE (05:35)
[2020-09-04] MEDS ORDERED: PROPOFOL 50 ML IV ONE (05:37)
[2020-09-04] MEDS ORDERED: SUCCINYLCHOLINE CHLORIDE 200 MG/10 ML VIAL ONE (05:39)
[2020-09-04] MEDS ORDERED: CEFEPIME 2 GM VIAL ONE (06:01)
[2020-09-04] MEDS ORDERED: SODIUM CHL 0.9% 50ML MIN-BAG+ 50 ML IVPB ONE (06:01)
[2020-09-04] MEDS ORDERED: CEFEPIME 2 GM in SODIUM CHL 0.9% 100ML MINI-BAG 100 ML IVPB ONE (06:04)
[2020-09-04] MEDS ORDERED: DEXAMETHASONE INJ 10 MG/ML VIAL IV ONE (06:08)
[2020-09-04] MEDS ORDERED: DEXAMETHASONE INJ 10 MG/ML VIAL ONE (06:10)
[2020-09-04] MEDS: PANTOPRAZOLE SODIUM TAB 40 MG PO SCH (06:16)
[2020-09-04 07:18] VITALS: BP 109/68; TEMP 98.4; O2SAT 96
--- NOTE | 2020-09-04 07:46 | RAD ---
EXAM: Chest Radiography COMPARISON: Chest radiograph September 03, 2020 INDICATION: MAIN ETT-check placement FINDINGS: A single AP view of the chest demonstrates an indistinct cardiomediastinal silhouette. The endotracheal tube tip is 1.0 cm from the craig. No definite pneumothorax. Probable small left pleural effusion (the left costophrenic sulcus is out of the [id number]). Stable diffuse consolidations, greatest throughout the left lung. Osseous structures are intact. IMPRESSION: 1. Endotracheal tube tip is 1.0 cm from the craig. Consider retracting 1 to 2 cm. 2. The chest is otherwise stable. Electronically signed by: Bijan Ospina MD 09/04/2020 7:44 AM LEARNING AND DEVELOPMENT INTERN
--- NOTE | 2020-09-04 08:03 | PN ---
SUPERVISING PHYSICIAN: Martir Bernabe MD DATE: 09/03/20 SUBJECTIVE: The patient has not made much change other than getting a little bit more depressed. He has voiced to the nurses that he is getting to the point where he has given up. We did discuss with him getting a counselor in to visit with him. He has had no further complaints. He has actually been up to a chair, but is still requiring high flow nasal cannula on the Airvo system. OBJECTIVE: VITAL SIGNS: Temperature 98.1, pulse 99, blood pressure 106/70, respirations 23-24, saturation 94% on 80% FiO2 on Airvo flow system. GENERAL: At the time of my exam, the patient is resting comfortably and is cooperative. He was alert, but confused on location. RESPIRATORY: Diminished throughout with some notable rhonchi heard in the left upper lobe, no wheezing. CARDIAC: Regular rate and rhythm. GASTROINTESTINAL: Abdomen is soft, nontender. Bowel sounds are positive. EXTREMITIES: No cyanosis, clubbing or edema. NEUROLOGIC: He is alert, but not oriented to location with no obvious neurologic deficits noted on exam. SKIN: Warm, pink and dry. LABORATORY: White count 17,300, stable hemoglobin 16.5 and hematocrit 49.4, platelet count 103,000. Differential continues to show a left shift. Coagulation studies show D-dimer 791. Chemistries show sodium 133, potassium 5.2. Creatinine remains within normal limits at 0.6. Calcium 9.2, total bilirubin remains fairly stable and actually showing a slight decrease at 4.4. Otherwise, AST, ALT are normal. RADIOLOGY: Chest x-ray this morning shows persistent and grossly unchanged diffuse, left greater than right, bilateral mixed airspace and interstitial disease. ASSESSMENT: 1. Acute hypoxemic respiratory failure. 2. COVID-19 pneumonitis. 3. Bilateral bacterial pneumonia. Treated with two weeks of IV antibiotics 4. Hyperbilirubinemia, 5. Questionable cholecystitis with suspected dilatation of common bile duct with an elevated indirect bilirubin. 6. Liver ascites in a patient that is a heavy drinker. 7. Hospital psychosis. 8. Hypertension. PLAN: We will continue current plan of care. I did discuss with him getting Nae down to come talk to him in regards to his increasing depression. I was going to start him on an antidepressant, but now he is on Geodon b.i.d. in efforts to keep him from being agitated at times. Until we get him off that medication, I am not sure it is safe to put him on another antidepressant. We will continue to titrate his oxygen down as his needs decrease. They are still working on transfer, however, the hospital they were working on said they would take him once his oxygen needs are down a little bit more than they are now and much more stable, therefore, I am feeling like that is a way of saying no without actually giving an answer of no, but we will keep trying to get him transferred and discussed with family. Until we can get him transferred or discharged to outpatient management, we will continue to monitor and treat as needed. #[id number] [facility]
--- NOTE | 2020-09-08 08:21 | DS ---
SUPERVISING PHYSICIAN: Martir Bernabe MD ADMISSION DIAGNOSIS: 1. COVID pneumonitis with associated hypoxia. 2. Sepsis secondary to #1 with initial elevated lactic acid. 3. Hypertension. DISCHARGE DIAGNOSIS: 1. Acute hypoxemic respiratory failure requiring mechanical ventilation. 2. COVID-19 pneumonitis. 3. Bilateral bacterial pneumonia. Treated with two weeks of IV antibiotics 4. Hyperbilirubinemia, 5. Questionable cholecystitis with suspected dilatation of common bile duct with an elevated indirect bilirubin. 6. Liver ascites in a patient that is a heavy drinker. 7. Hospital psychosis. 8. Hypertension. REASON FOR HOSPITALIZATION: Mr. Toney is a 75 year-old male patient who presented to the Emergency Room today with a history of hypertension and recently being tested positive for COVID. He presents with increasing shortness of breath. He endorses that his symptoms initially started with a cough and congestion on 08/06/20. He actually tested positive on 08/09/20 and was started on a Z-Pac at that time. He also endorses that he has had body aches, fatigue, decreased appetite and occasional fever and increasing difficulty with breathing over the last 2 days. He denied actual chest pain. His chest x-ray shows bilateral atelectasis. His actual labs showed he had a white count of 7,300 without a left shift but low lymphocytic count. His D-dimer was normal but he had a lactic acid of 2.8. Creatinine was 0.84. C-reactive protein is a little low at 6.1. Vital signs in the Emergency Room showing saturation 88% on room air. He does not normally wear oxygen. Respirations of 24, some mild distress. After breathing treatment and placing him on oxygen at nasal cannula, he was showing 94% saturations. Given his recent testing positive for COVID and increasing shortness of breath and dyspnea, hypoxia, he is going to be admitted now for treatment of COVID pneumonitis. He was admitted in stable condition. LABORATORY: White count on discharge was 19,000, hemoglobin 16.3, hematocrit 49.0. Differential did show a left shift. Platelet count 95,000. Coagulation studies showed D-dimer 791. Blood gas analysis before intubation showed pH 7.497, pO2 52, pCO2 35, bicarb 27, base excess 4, saturation 90% on 100% FiO2 on BiPAP. Chemistry at discharge showed sodium 133, potassium 5.3, BUN 19, creatinine 0.59, total bilirubin 4.7, AST 50, ALT 52, last C-reactive protein 5.1. Hepatitis panel A, B, C, please that report, reported as all negative. MICROBIOLOGY: Blood cultures after 5 days were negative. RADIOLOGY: Chest x-ray on discharge showed endotracheal tube 1.0 cm from the craig, consider retracting 1 to 2 cm. Chest otherwise stable with no definite pneumothorax, probable small left pleural effusion, stable diffuse consolidations greatest throughout the left lung. He had multiple chest x-rays while in the hospital. Please see those reports for details. He also had abdominopelvic CT with contrast that showed moderate upper abdominal ascites, nonspecific, with no significant biliary dilation. There is some moderate diffuse colon diverticulosis without focal CT findings of acute diverticulitis. He also had an abdominal ultrasound that showed suboptimal evaluation with gallbladder filled with sludge, common bile duct not visualized, no intrahepatic duct dilation. EKG: EKG on admission showed normal sinus rhythm without ST or T-wave inversions or ST elevations to indicate acute ischemia. CONSULTATIONS: 1. Medical consultation by Dr. Angulo, surgery, please see his report for details. 2. Medical consultation by Dr. Augie Coker, GI specialty, please see his consultation for details. HOSPITAL COURSE: Mr. Toney was admitted initially on 08/16/20 for COVID pneumonitis with resulting pneumonia. He was treated with remdesivir, Rocephin, azithromycin, Decadron and then transitioned to Levaquin for total treatment of 16 days on antibiotics. He was continued on p.o. prednisone. He had aggressive pulmonary hygiene, nebulizer treatments with albuterol and Pulmicort. He was slow to progress in his clinical presentation related to COVID pneumonitis/pneumonia. On the morning of the day of transfer, 09/04/20, the patient acutely had decline in his clinical condition requiring respiratory support in the form of mechanical ventilation. Please see nursing notes and other notes for details regarding intubation. The patient was found to be stable at time of intubation at discharge. He also had multiple consultations regarding his elevated bilirubin, but no acute findings were noted. Ultimately, the patient had to be transferred to higher level of care for ICU related to his intubation and services not available at [facility]. He was transported via ground ambulance. Vital signs on discharge showed he had temperature 98.4, pulse 111, blood pressure 109/68, respirations 22 via mechanical ventilation and saturation 96% on 100% FiO2. PLAN: Mr. Toney was transferred to [facility] after he required intubation and stabilization due to worsening pneumonia. He was accepted in transfer by [facility] due to services not available at [facility]. He was serious but stable at time of transfer. He did transfer via ground ambulance. Once he is discharged, he will need followup with Dr. Fortune. Critical care time spent for evaluation and treatment of the patient, coordination of care with nursing and respiratory staff, intubation, chart review, medication review, order entry technician as well as documentation is 45 minutes. #[id number] [facility]
== END 2020-09-04 06:35 | disposition short-term general hospital (02) | DRG 208 ==
LOC: ER 11:50 → MS 13:40 → OBSVTOIN 13:40
PROVIDERS: ADMIT Nurse Practitioner Family; ATTEND Nurse Practitioner Family
PROC: XW033E5 Introduction of Remdesivir Anti-infective into Peripheral Vein, Percutaneous Approach, New Technology Group 5 (ICD-10-PCS; 2020-08-16)
PROC: 0BH17EZ Insertion of Endotracheal Airway into Trachea, Via Natural or Artificial Opening (ICD-10-PCS; principal; 2020-09-04)
PROC: 5A1935Z Respiratory Ventilation, Less than 24 Consecutive Hours (ICD-10-PCS; 2020-09-04)
DX: U07.1 COVID-19 (principal); J12.82 Pneumonia due to coronavirus disease 2019; J96.01 Acute respiratory failure with hypoxia; R18.8 Other ascites; F05 Delirium due to known physiological condition; K81.9 Cholecystitis, unspecified; I10 Essential (primary) hypertension; E80.6 Other disorders of bilirubin metabolism